=== PATIENT | male | born 1930 | race Caucasian/White ===

== ENCOUNTER → 2016-03-07 | Outpatient (CLI) | payer OTHER, MEDICARE ==
[~2016-03-07] MED LIST: ASPI-428 PO; GLIM1TAB2 PO; IMDSR60 PO; ISOS60TA2 PO; KPP250 PO; LACO50TA PO; METO50TA7 PO; MULT-506 PO; NTRGSL/4 UT; NVLGIPEN SC; OLME5TAB3 PO; OMEG10007 PO; RANI300T2 PO; SIMV80TA2 PO; [UNRECOGNIZED DRUG - OTHER]
[2016-03-07 13:32] LABS: URINE APPEARANCE CLEAR (CLEAR); URINE BILIRUBIN NEG (NEG); URINE COLOR YELLOW; URINE EPITHELIAL CELL AUTO 0-5 /lpf (0-5); URINE NITRITE NEG (NEG); URINE SPECIFIC GRAVITY 1.017 (1.000-1.030); UROBILINOGEN NEG (NEG)
[2016-03-07 13:36] LABS: MANUAL MICROSCOPIC REQUIRED? NO; REVIEW REQ? NO
[2016-03-07 13:48] LABS: BASO % 0.3 %; BASO ABS # 0.02 K/uL (0-0.2); COMPLETE YES; EOS % 3.7 %; HEMATOCRIT 42.7 % (42-52); IG% 0.1 %; LYMPH % 11.6 %; LYMPH ABS # 0.85 K/uL (1.2-3.4); MEAN CELL VOLUME 90.7 fL (80-100); MEAN CORPUSCULAR HEMOGLOBIN 31.6 pg (25-34); MEAN CORPUSCULAR HGB CONC 34.9 g/dl (32-36); MEAN PLATELET VOLUME 12.3 fL (7.4-10.4); MONO % 11.2 %; NEUT % 73.1 %; PLATELET COUNT 153 K/uL (130-400); RED BLOOD COUNT 4.71 M/uL (4.7-6.1); WHITE BLOOD COUNT 7.35 K/uL (4.8-10.8)
[2016-03-07 13:56] LABS: ALT/SGPT 42 U/L (12-78); AST/SGOT 29 U/L (15-37); BLOOD UREA NITROGEN 30 mg/dl (7-18); BUN/CREATININE RATIO 19.9 (10-20); CALCIUM 9.4 mg/dl (8.5-10.1); CARBON DIOXIDE 25 mmol/L (21-32); CHLORIDE 108 mmol/L (98-107); GLUCOSE 108 mg/dl (70-99); POTASSIUM 4.4 mmol/L (3.5-5.1); SODIUM 142 mmol/L (136-145)
[2016-03-07 13:59] LABS: ALB/GLOB RATIO 1.2 (0.9-2); ALKALINE PHOSPHATASE 128 U/L (45-117); PHOSPHORUS 3.1 mg/dl (2.5-4.9)
[2016-03-07 14:04] LABS: URINE PROTIEN/CREAT RATIO 0.1 (0-0.2); URINE TOTAL PROTEIN 8.7 mg/dl (0-11.9)
[2016-03-07 14:10] LABS: IMMUNOGLOBULN M 22.3 mg/dL (40-230); URIC ACID 6.1 mg/dl (2.6-7.2)
[2016-03-07 14:21] LABS: ESTIMATED AVERAGE GLUCOSE 123 mg/dl; HA1C FLAG Normal (Normal)
--- NOTE | 2016-03-17 12:18 | CODING QUERY MEDICAL NECESSITY ---
SUPPORTING DIAGNOSIS NEEDED A supporting diagnosis is required for the test/procedure performed on this patient in order for us to be reimbursed by the patient's insurance. Please provide a supporting diagnosis for the following test/procedure listed below next to the test name along with your signature. *If there is no additional diagnosis for this patient that would support the following test/procedure please document that below next to the test/procedure. Test(s)/Procedure(s) that require a supporting diagnosis: DOS 03/07/16 * Hba1c DIAGNOSIS: Provider Signature: Date: Thank you Petrona Reese Health Information Management Once completed, please kindly fax back to [phone] For questions please call [phone]
== END | disposition home or self-care (01) ==
LOC: C.LABMFLN 08:24
PROVIDERS: ATTEND Family Medicine
DX: I25.10 Atherosclerotic heart disease of native coronary artery without angina pectoris (principal); C85.90 Non-Hodgkin lymphoma, unspecified, unspecified site; I12.9 Hypertensive chronic kidney disease with stage 1 through stage 4 chronic kidney disease, or unspecified chronic kidney disease; E78.00 Pure hypercholesterolemia, unspecified; G40.909 Epilepsy, unspecified, not intractable, without status epilepticus; E55.9 Vitamin D deficiency, unspecified; E53.8 Deficiency of other specified B group vitamins; N18.3 Chronic kidney disease, stage 3 (moderate); D64.9 Anemia, unspecified; N25.81 Secondary hyperparathyroidism of renal origin; C82.90 Follicular lymphoma, unspecified, unspecified site; E11.22 Type 2 diabetes mellitus with diabetic chronic kidney disease

== ENCOUNTER 2016-03-31 09:48 | Inpatient (IN) | payer OTHER, MEDICARE ==
[~2016-03-31] VITALS: Ht 170.2 cm; Wt 78.5 kg
[~2016-03-31 09:48] MED LIST changes: -GLIM1TAB2 PO; -ISOS60TA2 PO; -LACO50TA PO; -NVLGIPEN SC; -OLME5TAB3 PO
[2016-03-31] MEDS ORDERED: GLIM1TAB2 PO (10:17)
[2016-03-31] MEDS ORDERED: ISOS60TA2 PO (10:17)
[2016-03-31] MEDS ORDERED: OLME5TAB3 PO (10:21)
[2016-03-31] MEDS ORDERED: NITROGLYCERIN 0.4 MG SL PER TAB CHARGE ONE (10:52)
[2016-03-31] MEDS ORDERED: NITROGLYCERIN 0.3 MG/1 TAB 100 TAB BTL SL PRN (11:00)
[2016-03-31 11:02] LABS: BASO % 0.1 %; BASO ABS # 0.01 K/uL (0-0.2); COMPLETE YES; EOS % 0.9 %; HEMATOCRIT 39.7 % (42-52); IG% 0.3 %; LYMPH % 6.4 %; LYMPH ABS # 0.59 K/uL (1.2-3.4); MEAN CELL VOLUME 90.2 fL (80-100); MEAN CORPUSCULAR HEMOGLOBIN 31.6 pg (25-34); MEAN PLATELET VOLUME 11.7 fL (7.4-10.4); MONO % 8.5 %; NEUT % 83.8 %; PLATELET COUNT 122 K/uL (130-400); WHITE BLOOD COUNT 9.28 K/uL (4.8-10.8)
--- NOTE | 2016-03-31 11:05 | EMERGENCY ROOM VISIT NOTE ---
History First contact with patient: 10:19 Chief Complaint: CHEST PAIN Stated Complaint: Chest Pain Nursing Triage Summary: Sudden onset of CP this AM while in bathroom. +cardiac history with bypass. gave patient 3 nitro at home, last one at 0840 and pain was relieved. O2 sats for EMS were in the 80s on RA upon arrival. EMS gave 324 ASA. When pt asked if he has pain upon arrival to ED he states, "its acting up." Also reports it radiates up into the left side of his neck. History of Present Illness The patient is a 85 year old male who presents to the Emergency Room with complaints of chest pain and shortness of breath. Patient is accompanied by who contributes to the history as patient has moderate dementia. Patient has been short of breath for the past 2-3 days. This morning noted he was short of breath at rest and was complaining of 'angina' chest pain. However, she notes the pain was present with or without exertion. She gave him 3 doses of nitroglycerine which did not alleviate the symptoms. He also looked short of breath and noted his lips looked 'cyanotic'. He had a similar episode yesterday and she gave him 1 dose of nitroglycerine which seemed to help. When asked patient similar questions he recalls this morning. He notes that the pain was a "sharp pain" in the upper sternum that radiated into the left arm. Pain was not positional. He also states, contrary to that the nitroglycerine helped the chest pain. He does not have recollection of chest pain day prior and whether nitroglycerine helped or not. He has also had shortness of breath for the past 3 days. His shortness of breath was primarily with exertion but this morning it was also at rest. He has had coughing but it has been non-productive. He has not had wheezing. His symptoms are no different between day and night. He has not had any gastrointestinal or genitourinary symptoms. He has not had fevers and his appetite and intake have been good. He does have a history of CAD and has had CABG x 2 in 1988 and 1998. He is followed by Dr. Heath. Last EF was in 2013 and was 50-55%. At his baseline he can walk 5-10 minutes on a level treadmill. He can do stairs. He does not have any oxygen need at home. Review of Systems A 10 point review of systems was negative unless stated above. Past Medical/Surgical History Medical Problems: (1) Acute on chronic kidney failure (2) ANTICOAGULANTS,LT,CURRENT USE (3) AORTOCORONARY BYPASS (4) Aphasia (5) BLURRED VISION (6) CORON ATHEROSCLER NOS TYPE VESSEL, KOBUK OR GRAFT (7) DIAB STACEY WO COMPL, TYPE II OR UNSPEC TYPE, NOT UNCNTRLD (8) HYPERLIPIDEMIA NEC/NOS (9) HYPERTENSION NOS (10) MALIG GO SKIN TRUNK (11) Non-Hodgkin's lymphoma (12) OTH LYMPHOMAS EXTRANODAL & SOLID ORGAN UNSPECIFIED (13) Pulmonary embolism (14) TIA (transient ischemic attack) (15) Unstable angina Family History Noncontributory due to advanced age Coronary artery disease in parents Social History Smoking Status: Never Smoker Smokeless Tobacco Use: No Alcohol Use: none Drug Use: none Marital Status: Housing Status: lives with family ([facility] Occupation Status: retired Current/Historical Medications Scheduled Aspirin (Ecotrin Low Strength), 81 MG PO HS Fish Oil ([place]-3), 1 TAB PO DAILY Glimepiride (Glimepiride), 1 MG PO DAILY Isosorbide Mononitrate (Imdur Ext Rel), 60 MG PO DAILY Levetiractam (Keppra), 250 MG PO BID Metoprolol Succ (Toprol Xl) (Toprol-Xl), 1 TAB PO DAILY Multivitamin (Multivitamin), 1 TABLET PO DAILY Nitroglycerin (Nitrostat), 0.4 MG UT PRN Olmesartan Medoxomil (Olmesartan Medoxomil), 5 MG PO DAILY Ranitidine Hcl (Zantac), 300 MG PO HS Simvastatin (Zocor), 80 MG PO HS Allergies Coded Allergies: Adhesives (Verified Allergy, Unknown, UNKN, 02/07/15) Procaine (Verified Allergy, Unknown, UNKNOWN, 02/07/15) Morphine (Verified Adverse Reaction, Unknown, UNKN, 02/07/15) Physical Exam Vital Signs Date Time Temp Pulse Resp B/P Pulse Ox O2 Delivery O2 Flow Rate FiO2 03/31/16 14:25 70 18 135/95 95 03/31/16 14:22 70 18 135/95 96 Room Air 03/31/16 13:33 67 03/31/16 12:36 68 18 125/76 95 03/31/16 10:55 67 19 142/80 96 Room Air 03/31/16 10:04 97 Nasal Cannula 2.0 03/31/16 09:58 90 Room Air 03/31/16 09:56 77 03/31/16 09:54 36.6 75 20 163/86 90 Room Air 03/31/16 09:54 90 Room Air Pain Rating (0-10): 0 Physical Exam Constitutional: Vital signs as above were reviewed. Eyes: Pupils equal, round, and reactive to light. Extraocular muscles are intact. No proptosis. No photophobia. ENT: Mucous membranes are moist. Oropharynx is clear. No sinus tenderness. TMs are clear bilaterally. Cardiovascular: Heart with a regular rate and rhythm. Pulses are palpable and symmetric in all 4 extremities. No pedal edema appreciated. No JVD Well healed midline thoracotomy scar Saphenous grafting scars Respiratory: Lungs clear to auscultation bilaterally. No wheezes, rales, or rhonchi appreciated. No accessory muscle use. No retractions. No increased work of breathing. GI: Abdomen soft, nontender, nondistended. Normal active bowel sounds. No abdominal hernias appreciated. No rebound. No guarding. : No CVA tenderness appreciated. Musculoskeletal: No midline cervical or vertebral tenderness. No gross deformities. No bony tenderness. No calf swelling or tenderness. Integumentary: Warm, dry, no rashes appreciated. Neurological: Patient awake, alert, and oriented x 3. Cranial nerves two through 12 grossly intact. Motor 5 out of 5 strength bilateral upper and lower extremities. Lymph: No cervical lymphadenopathy appreciated. Medical Decision & Procedures ER Provider Diagnostic Interpretation: [~ rep ct add3]] SINGLE VIEW CHEST CLINICAL HISTORY: Dyspnea. FINDINGS: An AP, portable, upright chest radiograph is compared to study dated 02/07/2015 and correlated with chest CT dated 06/16/2011. The examination is degraded by portable technique and patient rotation. The patient is status post midline sternotomy. The heart is enlarged and there is atherosclerotic calcification of the thoracic aorta. The pulmonary vasculature is noncongested. Scattered calcified granulomas are observed. Linear scarring at the left lung base and chronic interstitial thickening are similar to previous. No airspace consolidation, large pleural effusion, or pneumothorax is seen. The skeletal structures are osteopenic. The bony thorax is grossly intact. IMPRESSION: Cardiomegaly with no active disease in the chest. Electronically signed by: Jose Garduno M.D. 03/31/2016 11:23 AM Dictated Date/Time: 03/31/2016 11:22 AM Laboratory Results 03/31/16 10:25 Red Blood Count 4.40, Mean Corpuscular Volume 90.2, Mean Corpuscular Hemoglobin 31.6, Mean Corpuscular Hemoglobin Concent 35.0, Mean Platelet Volume 11.7, Neutrophils (%) (Auto) 83.8, Lymphocytes (%) (Auto) 6.4, Monocytes (%) (Auto) 8.5, Eosinophils (%) (Auto) 0.9, Basophils (%) (Auto) 0.1, Neutrophils # (Auto) 7.78, Lymphocytes # (Auto) 0.59, Monocytes # (Auto) 0.79, Eosinophils # (Auto) 0.08, Basophils # (Auto) 0.01 03/31/16 10:25 Test 03/31/16 10:25 White Blood Count 9.28 K/uL (4.8-10.8) Red Blood Count 4.40 M/uL (4.7-6.1) Hemoglobin 13.9 g/dL (14.0-18.0) Hematocrit 39.7 % (42-52) Mean Corpuscular Volume 90.2 fL (80-100) Mean Corpuscular Hemoglobin 31.6 pg (25-34) Mean Corpuscular Hemoglobin Concent 35.0 g/dl (32-36) Platelet Count 122 K/uL (130-400) Mean Platelet Volume 11.7 fL (7.4-10.4) Neutrophils (%) (Auto) 83.8 % Lymphocytes (%) (Auto) 6.4 % Monocytes (%) (Auto) 8.5 % Eosinophils (%) (Auto) 0.9 % Basophils (%) (Auto) 0.1 % Neutrophils # (Auto) 7.78 K/uL (1.4-6.5) Lymphocytes # (Auto) 0.59 K/uL (1.2-3.4) Monocytes # (Auto) 0.79 K/uL (0.11-0.59) Eosinophils # (Auto) 0.08 K/uL (0-0.5) Basophils # (Auto) 0.01 K/uL (0-0.2) RDW Standard Deviation 43.2 fL (36.4-46.3) RDW Coefficient of Variation 13.2 % (11.5-14.5) Immature Granulocyte % (Auto) 0.3 % Immature Granulocyte # (Auto) 0.03 K/uL (0.00-0.02) Anion Gap 12.0 mmol/L (3-11) Est Creatinine Clear Calc Drug Dose 35.1 ml/min Estimated GFR () 45.2 Estimated GFR (Non- 39.0 BUN/Creatinine Ratio 18.7 (10-20) Calcium Level 9.3 mg/dl (8.5-10.1) ECG Change: no significant change Change: Normal sinus rhythm Nonspecific ST abnormality Abnormal ECG When compared with ECG of 07-FEB-2015 09:38, No significant change was found Confirmed by MANJIT BUI MD ([id number]) on 03/31/2016 2:33:15 PM ED Course 10:30 - Patient assessed CBC, BMP cardiac enzymes, EKG and Chest x-ray ordered Patient is currently chest pain free 10:50 - Daughter notified me that patient is DNR and would prefer comfort measures 11:10 - Previous EKG reviewed 11:30 - Notified of Troponin 0.061 11:40 - Returned to room with family; patient is still chest pain free and feeling well Discussed with patient and admission for further evaluations Have noted that whether he is having ongoing myocardial damage is unknown and he needs serial monitoring states he is DNR and would not want catheterization; I have noted the other alterative which would be medical management but needs 24 hour trending first will discuss with daughters, whether they want admission with evaluation 13:10 - Returned to room; patient, and 4 daughters are present at the bedside Reviewed earlier conversation notes she accepts recommendation to admit for work-up Would like to review goals of care after troponins have trended 13:25 - Case discussed with Dr. Shaffer; patient to be admitted for further evaluation. Patient comfortable and doing well. Medical Decision A thorough history was obtained, physical examination performed and the EMR was reviewed. The case was reviewed multiple times over with Dr. Morocho during the patient's ED visit. Patient is a very pleasant 85 year old male with a known history of coronary artery disease as well. He presents with a history of chest pain and shortness of breath over the past 2 days, that has had a variable response to nitroglycerine. Given his cardiac history, acute coronary syndrome cannot be excluded. Other differential diagnoses to consider include, Pneumonia, Bronchitis, Pneumothorax, aortic dissection, pulmonary embolism, Pericarditis, Myocarditis. He was given ASA 324 en route to the ED. Chest x-ray was negative for any acute process. EKG did not reveal any new findings compared to EKG in October 2014. However, an initial troponin was positive at 0.061. As such this needs to be trended to further determine if there is ongoing myocardial, this is self-limited demand ischemia or whether this is related to poor troponin clearance due to CKD. who is a substitute decision maker does note that he is a DNR and that they do not want to have coronary angiography. I have discussed the alternative to catheterization (ie intensive medical management), as an to consider if this turns out to be ACS. However at this time, with only a single troponin, it is unclear if there is ongoing myocardial damage. Patient and daughters had the opportunity to discuss and were amenable to being admitted for further work-up to determine if this is truly ACS and what the possible next would be if this is the case. I have discussed this case with the hospitalist service and made them aware of reviewing goals of care in 24 hours after cardiac enzymes have been trended. Patient was admitted without symptoms and in stable condition. Impression Primary Impression: NSTEMI (non-ST elevated myocardial infarction) Departure Information Dispostion Being Evaluated By Hospitalist Condition GOOD Referrals Jose Mae M.D. (PCP) Patient Instructions My [facility]
[2016-03-31 11:09] LABS: BUN/CREATININE RATIO 18.7 (10-20); CALCIUM 9.3 mg/dl (8.5-10.1); CREATININE 1.6 mg/dl (0.60-1.40); POTASSIUM 4.4 mmol/L (3.5-5.1)
--- NOTE | 2016-03-31 11:25 | DIAGNOSTIC IMAGING REPORT ---
SINGLE VIEW CHEST CLINICAL HISTORY: Dyspnea. FINDINGS: An AP, portable, upright chest radiograph is compared to study dated 02/07/2015 and correlated with chest CT dated 06/16/2011. The examination is degraded by portable technique and patient rotation. The patient is status post midline sternotomy. The heart is enlarged and there is atherosclerotic calcification of the thoracic aorta. The pulmonary vasculature is noncongested. Scattered calcified granulomas are observed. Linear scarring at the left lung base and chronic interstitial thickening are similar to previous. No airspace consolidation, large pleural effusion, or pneumothorax is seen. The skeletal structures are osteopenic. The bony thorax is grossly intact. IMPRESSION: Cardiomegaly with no active disease in the chest. Electronically signed by: Jose Garduno M.D. 03/31/2016 11:23 AM Dictated Date/Time: 03/31/2016 11:22 AM
[2016-03-31 14:22] VITALS: BP 135/95; PULSE 70; O2SAT 96; Ht 170.2 cm; Wt 78.5 kg
--- NOTE | 2016-03-31 14:32 | Medical Student: [facility] ---
Med Student History & Physical Date & Time of Service: Mar 31, 2016 at 14:11 Chief Complaint: Shortness of breath and Chest Pain Primary Care Physician: Jose Mae M.D. History of Present Illness Source: patient, family 85 y/o male with history of CABG x2 (1988 and 1998) and cardiac stents began having shortness of breath two days ago and some chest pain that was relieved with one nitro, given by his at home. The patient did not have any issues yesterday but began to have shortness of breath and chest pain beginning around 9am this morning. The patient states that the pain was located in the middle and left of his chest and radiated down his left arm. He states that the pain was constant, but was made worse with exertion. The patient also had some sweats during this period. Per , the patient was given three NTG's at home which did not relieve the symptoms. She then proceeded to call the ambulance and the patient was given four 81mg ASA upon their arrival. The states that this, in addition to the O2 that the patient was given in route to the hospital helped to improve his symptoms. She states that the last time he had any chest pain was around noon. Prior to the past three days, the states that the patient has not had any recent chest pain or shortness of breath. The only times that he has needed NTG in the past few years is when he exerts himself on the treadmill. He has no problems getting around the house. The patient is followed by Dr. Heath in cardiology and was last seen in December of 2015. The patient does have a history of a PE, in November 2008 while he was being treated with chemo for lymphoma. His lymphoma has been in remission for years. He has not been less active recently and has not had any recent long trips. He denies calf swelling, pain, or bruising. Patient has a history of dementia. Dr. Quintana follows the patient's stage III CKD [address]. Morrow follows the patient for seizures. Past Medical/Surgical History Medical Problems: (1) Near syncope 2. CKD- stage III 3. Seizures 4. diabetes 5. HTN 6. PE 7. TIA 8. Dementia 9. Lymphoma 10. Cardiac stents 11. CABG x2 (1988 and 1998) Family History Father: heart disease Mother: heart disease Sibling(s): heart disease, cancer Social History Smoking Status: Never Smoker Smokeless Tobacco Use: No Alcohol Use: none Drug Use: none Marital Status: Housing status: lives with family Occupational Status: retired Immunizations History of Influenza Vaccine: Yes Influenza Vaccine Date: Nov 22, 2012 History of Tetanus Vaccine?: UTD Tetanus Immunization Date: Apr 20, 2002 History of Pneumococcal: Yes Pneumococcal Date: Apr 20, 2009 History of Hepatitis B Vaccine: No Allergies Coded Allergies: Adhesives (Verified Allergy, Unknown, UNKN, 02/07/15) Procaine (Verified Allergy, Unknown, UNKNOWN, 02/07/15) Morphine (Verified Adverse Reaction, Unknown, UNKN, 02/07/15) Medications Aspirin (Ecotrin Low Strength), 81 MG PO HS Fish Oil ([place]-3), 1 TAB PO DAILY Glimepiride (Glimepiride), 1 MG PO DAILY Isosorbide Mononitrate (Imdur Ext Rel), 60 MG PO DAILY Levetiractam (Keppra), 250 MG PO BID Metoprolol Succ (Toprol Xl) (Toprol-Xl), 1 TAB PO DAILY Multivitamin (Multivitamin), 1 TABLET PO DAILY Nitroglycerin (Nitrostat), 0.4 MG UT PRN Olmesartan Medoxomil (Olmesartan Medoxomil), 5 MG PO DAILY Ranitidine Hcl (Zantac), 300 MG PO HS Simvastatin (Zocor), 80 MG PO HS Review of Systems Constitutional: + sweats, No chills, No fever Eyes: No discharge, No redness, No worsening of vision ENT: No nasal symptoms, No sore throat Respiratory: + shortness of breath, No cough, No sputum Cardiovascular: + chest pain, No edema Abdomen: No constipation, No diarrhea, No nausea, No pain, No vomiting Musculoskeletal: No calf pain, No swelling Neurologic: + memory loss (history of dementia), No weakness Endocrine: No excessive thirst, No fatigue Integumentary: No itch, No new/changing skin lesions, No rash Physical Exam Vital Signs (24 Hours) Date Time Temp Pulse Resp B/P Pulse Ox O2 Delivery O2 Flow Rate FiO2 03/31/16 13:33 67 03/31/16 12:36 68 18 125/76 95 03/31/16 10:55 67 19 142/80 96 Room Air 03/31/16 10:04 97 Nasal Cannula 2.0 03/31/16 09:58 90 Room Air 03/31/16 09:56 77 03/31/16 09:54 36.6 75 20 163/86 90 Room Air 03/31/16 09:54 90 Room Air General Appearance: WD/WN, no apparent distress Eyes: normal inspection, EOMI Neck: supple, no JVD, no carotid bruits Respiratory/Chest: chest non-tender, lungs clear, normal breath sounds, no respiratory distress, no accessory muscle use Cardiovascular: regular rate, rhythm, no edema, no murmur Abdomen/GI: normal bowel sounds, non tender, soft, no pulsatile mass Extremities/Musculoskelatal: normal inspection, no calf tenderness, no pedal edema, non-tender Neurologic/Psych: alert, normal mood/affect Skin: normal color, warm/dry, no rash Diagnostics Laboratory Results Results Past 24 Hours Test 03/31/16 10:25 Range/Units White Blood Count 9.28 4.8-10.8 K/uL Red Blood Count 4.40 4.7-6.1 M/uL Hemoglobin 13.9 14.0-18.0 g/dL Hematocrit 39.7 42-52 % Mean Corpuscular Volume 90.2 80-100 fL Mean Corpuscular Hemoglobin 31.6 25-34 pg Mean Corpuscular Hemoglobin Concent 35.0 32-36 g/dl Platelet Count 122 130-400 K/uL Mean Platelet Volume 11.7 7.4-10.4 fL Neutrophils (%) (Auto) 83.8 % Lymphocytes (%) (Auto) 6.4 % Monocytes (%) (Auto) 8.5 % Eosinophils (%) (Auto) 0.9 % Basophils (%) (Auto) 0.1 % Neutrophils # (Auto) 7.78 1.4-6.5 K/uL Lymphocytes # (Auto) 0.59 1.2-3.4 K/uL Monocytes # (Auto) 0.79 0.11-0.59 K/uL Eosinophils # (Auto) 0.08 0-0.5 K/uL Basophils # (Auto) 0.01 0-0.2 K/uL RDW Standard Deviation 43.2 36.4-46.3 fL RDW Coefficient of Variation 13.2 11.5-14.5 % Immature Granulocyte % (Auto) 0.3 % Immature Granulocyte # (Auto) 0.03 0.00-0.02 K/uL Sodium Level 145 136-145 mmol/L Potassium Level 4.4 3.5-5.1 mmol/L Chloride Level 110 98-107 mmol/L Carbon Dioxide Level 23 21-32 mmol/L Anion Gap 12.0 3-11 mmol/L Blood Urea Nitrogen 30 7-18 mg/dl Creatinine 1.60 0.60-1.40 mg/dl Est Creatinine Clear Calc Drug Dose 35.1 ml/min Estimated GFR () 45.2 Estimated GFR (Non- 39.0 BUN/Creatinine Ratio 18.7 10-20 Random Glucose 143 70-99 mg/dl Calcium Level 9.3 8.5-10.1 mg/dl Total Creatine Kinase 96 39-308 U/L Creatine Kinase MB 1.9 0.5-3.6 ng/ml Creatine Kinase MB Ratio 2.0 0-3.0 Troponin I 0.061 0-0.045 ng/ml Diagnostic Radiology CXR: FINDINGS: An AP, portable, upright chest radiograph is compared to study dated 02/07/2015 and correlated with chest CT dated 06/16/2011. The examination is degraded by portable technique and patient rotation. The patient is status post midline sternotomy. The heart is enlarged and there is atherosclerotic calcification of the thoracic aorta. The pulmonary vasculature is noncongested. Scattered calcified granulomas are observed. Linear scarring at the left lung base and chronic interstitial thickening are similar to previous. No airspace consolidation, large pleural effusion, or pneumothorax is seen. The skeletal structures are osteopenic. The bony thorax is grossly intact. IMPRESSION: Cardiomegaly with no active disease in the chest. Impression Assessment and Plan Differential Diagnosis: Unstable Angina, Myocardial Infarction, Aortic Dissection, PE, Pneumonia, Viral URI, aortic aneurysm, costochondritis, COPD, CHF exacerbation, Hypoglycemic episode Assessment and Plan: Given the patient's recent history and significant heart history of CAD, CABG, and cardiac stents, he will be admitted for a cardiac rule out. Will get serial heart enzymes and ecgs. Dr. Heath will be consulted. Echocardiogram ordered. Family wants to have a plan for PT prior to discharge. Once the patient is cleared from a cardiac standpoint, will further address this issue. The patient does have a history of PE while on chemotherapy for lymphoma. While having this history and having episodes of shortness of breath and chest pain, he does not have any other warning signs at this time. Given his history of CKD and creatinine of 1.6, will consider getting a V/Q scan. 1. CAD, chest pain rule out - Serial heart enzymes, ECGs. Consult Dr. Heath. Continue with ASA 81mg PO qAM and Fish Oil. Administer NTG as needed for chest pain. Echo ordered. 2. CKD- Stable, Continue to monitor creatinine and kidney function. 3. Diabetes- Discontinue Glimeperide 1mg during hospital stay. Initiate administration of Novolog. 4. HTN- Continue with home medications of Olmesartan 5mg PO daily and Metoprolol Succinate 1 tab PO daily 5. Seizures- Continue with home dosage of Levetiracetam 250mg PO BID 6. Hyperlipidemia- Continue with Simvastatin 80mg 7. GERD- continue administration of ranitidine 300mg PO
[2016-03-31] MEDS ORDERED: NITROGLYCERIN 0.4 MG SL PER TAB CHARGE UT PRN (14:45)
[2016-03-31] MEDS ORDERED: GLUCOSE 40% GEL 15 GM TUBE PO PRN (15:00)
[2016-03-31] MEDS ORDERED: GLUCAGON FOR INJ 1 MG VIAL SQ PRN (15:00)
[2016-03-31] MEDS ORDERED: ACETAMINOPHEN 325 MG TAB PO PRN (15:00)
[2016-03-31] MEDS ORDERED: ZOLPIDEM TARTRATE 5 MG TAB PO PRN (15:00)
[2016-03-31] MEDS ORDERED: ONDANSETRON INJ 2 MG/ML 2 ML VIAL IV PRN (15:00)
[2016-03-31] MEDS ORDERED: GLUCOSE 10 TABS/TUBE PO PRN (15:00)
[2016-03-31] MEDS ORDERED: DEXTROSE 50% 50 ML SYR IV PRN (15:00)
[2016-03-31 15:45] VITALS: BP_SYST 203; BP_SYST 206; BP_DIAS 106; BP_DIAS 114; PULSE 90; O2SAT 95
[2016-03-31 15:49] LABS: CKMB/CK RATIO 2.5 (0-3.0)
[2016-03-31 16:00] VITALS: BP 163/84; PULSE 75; O2SAT 95
--- NOTE | 2016-03-31 17:36 | EMERGENCY ROOM VISIT NOTE ---
ED Visit Note First contact with patient: 10:19 Resident Physician Supervision Note: I interviewed and examined the patient. Discussed with Dr. Bauman and agree with findings and plan as documented in the note. Any exceptions or clarifications are listed here: Patient and family seem comfortable with the plan for further evaluation and management by the hospitalist service. Thus far the EKG and cardiac enzymes are negative. Please refer to Dr. Bauman's notes for further detail of the history, physical and visit. Documented By: Elke Morocho
[2016-03-31] MEDS: INSULIN ASPART 100 UNITS/ML 3 ML PEN SC SCH ×2 (18:00→20:58)
[2016-03-31] MEDS: NITROGLYCERIN OINT 2% 1GM PACKET EXT SCH (18:17)
[2016-03-31 18:58] VITALS: BP 169/56; PULSE 65; TEMP 36.7; O2SAT 94
[2016-03-31 20:00] VITALS: O2SAT 94
[2016-03-31] MEDS: OLMESARTAN MEDOXOMIL 5 MG TAB PO SCH (20:53)
[2016-03-31] MEDS: LEVETIRACETAM 250 MG TAB PO SCH (20:54)
[2016-03-31] MEDS: RANITIDINE HCL 150 MG TAB PO SCH (20:57)
[2016-03-31] MEDS: SIMVASTATIN 80 MG TAB PO SCH (20:57)
[2016-03-31] MEDS: METOPROLOL SUCC 50MG EXT REL TAB PO SCH (20:57)
[2016-03-31 23:34] LABS: CKMB/CK RATIO 2.6 (0-3.0)
[2016-03-31 23:48] VITALS: BP 154/87; PULSE 70; TEMP 36.6; O2SAT 94
[2016-04-01] VITALS (13 sets, daily range): BP systolic 119–193; BP diastolic 68–88; PULSE 59–69; TEMP 36.4–36.9; O2SAT 93–97
[2016-04-01] MEDS: NITROGLYCERIN OINT 2% 1GM PACKET EXT SCH ×3 (00:36→11:47)
--- NOTE | 2016-04-01 01:48 | History and Physical ---
History & Physical Date & Time of Service: Apr 01, 2016 at 01:45 Chief Complaint: Unstable Angina Primary Care Physician: Jose Mae M.D. History of Present Illness Source: patient, family The patient is an 85-year-old male who presents emergency department with complaints of chest pain or shortness of breath for the past 2-3 days. The patient has moderate dementia. His noted he was more short of breath at rest the morning of admission and was complaining of anginal type chest pain she gave him 3 nitroglycerin sublinguals which did not alleviate his symptoms. She given him a single dose of nitroglycerin sublinguals the day before which did seem to help. Because of the persistence and worsening symptoms she called emergency services, who gave the patient 324 mg of aspirin in route. EMS also notes that his oxygen saturation was in the upper 80s on room air upon arrival. Past Medical/Surgical History Medical Problems: (1) ANTICOAGULANTS,LT,CURRENT USE Status: Chronic (2) AORTOCORONARY BYPASS Status: Resolved (3) Aphasia Status: Resolved (4) CORON ATHEROSCLER NOS TYPE VESSEL, GALENA OR GRAFT Status: Chronic (5) DIAB STACEY WO COMPL, TYPE II OR UNSPEC TYPE, NOT UNCNTRLD Permanent Comment: diet controlled Status: Chronic (6) HYPERLIPIDEMIA NEC/NOS Status: Chronic (7) HYPERTENSION NOS Status: Chronic (8) MALIG GO SKIN TRUNK Status: Resolved (9) Non-Hodgkin's lymphoma Status: Chronic (10) OTH LYMPHOMAS EXTRANODAL & SOLID ORGAN UNSPECIFIED Status: Resolved (11) Pulmonary embolism Status: Resolved (12) TIA (transient ischemic attack) Status: Resolved Family History Noncontributory due to advanced age Social History Smoking Status: Never Smoker Smokeless Tobacco Use: No Alcohol Use: none Drug Use: none Marital Status: Housing status: lives with family Occupational Status: retired Immunizations History of Influenza Vaccine: Yes Influenza Vaccine Date: Nov 22, 2012 History of Tetanus Vaccine?: UTD Tetanus Immunization Date: Apr 20, 2002 History of Pneumococcal: Yes Pneumococcal Date: Apr 20, 2009 History of Hepatitis B Vaccine: No Multi-Drug Resistant Organisms History of MDRO: No Allergies Coded Allergies: Adhesives (Verified Allergy, Unknown, UNKN, 02/07/15) Procaine (Verified Allergy, Unknown, UNKNOWN, 02/07/15) Morphine (Verified Adverse Reaction, Unknown, UNKN, 02/07/15) Home Medications Scheduled Aspirin (Ecotrin Low Strength), 81 MG PO HS Fish Oil ([place]-3), 1 TAB PO DAILY Glimepiride (Glimepiride), 1 MG PO DAILY Isosorbide Mononitrate (Imdur Ext Rel), 60 MG PO DAILY Levetiractam (Keppra), 250 MG PO BID Metoprolol Succ (Toprol Xl) (Toprol-Xl), 1 TAB PO DAILY Multivitamin (Multivitamin), 1 TABLET PO DAILY Nitroglycerin (Nitrostat), 0.4 MG UT PRN Olmesartan Medoxomil (Olmesartan Medoxomil), 5 MG PO DAILY Ranitidine Hcl (Zantac), 300 MG PO HS Simvastatin (Zocor), 80 MG PO HS Review of Systems The patient denies cough, lower extremity swelling, vision change, hearing change, sore throat, fevers, chills, sweats, weight change, fatigue, nausea, vomiting, abdominal pain, pelvic pain, blood in urine or stool, dysuria, urinary frequency or urgency, lightheadedness, dizziness, headache, rash, abnormal bruising or bleeding, imbalance, focal weakness, numbness or tingling in arms or legs, arthralgias or myalgias, back or neck pain, night sweats, or allergy symptoms. The review of systems is otherwise negative other than for that already noted above, and at least 10 systems have been reviewed. Physical Exam Vital Signs Date Time Temp Pulse Resp B/P Pulse Ox O2 Delivery O2 Flow Rate FiO2 03/31/16 23:48 36.6 70 18 154/87 94 Nasal Cannula 2.0 03/31/16 20:00 94 Nasal Cannula 2.0 03/31/16 18:58 36.7 65 18 169/56 94 Nasal Cannula 2.0 03/31/16 16:00 75 18 163/84 95 3.0 03/31/16 15:45 90 20 206/114 95 Nasal Cannula 3.0 03/31/16 15:45 203/106 03/31/16 15:02 70 18 135/95 95 03/31/16 14:25 70 18 135/95 95 03/31/16 14:22 70 18 135/95 96 Room Air 03/31/16 13:33 67 03/31/16 12:36 68 18 125/76 95 03/31/16 10:55 67 19 142/80 96 Room Air 03/31/16 10:04 97 Nasal Cannula 2.0 03/31/16 09:58 90 Room Air 03/31/16 09:56 77 03/31/16 09:54 36.6 75 20 163/86 90 Room Air 03/31/16 09:54 90 Room Air The patient is awake, well-developed and adequately nourished, alert and oriented 3 but slow to respond, normocephalic and atraumatic, lying in bed and in no acute distress. HEENT--PERRL, EOMI, mucous membranes and oropharynx dry. Neck--supple, no JVD or bruits, thyroid normal, trachea midline, no adenopathy. Heart--normal S1 and S2, no extra beats, no murmurs, rubs or gallops. Lungs--few scattered wheezes bilaterally, no respiratory distress, no accessory muscle use. Abdomen--normal bowel sounds and soft, nontender and nondistended, no hernias or masses, no organomegaly. Extremities--no cyanosis, clubbing, there is bilaterally 1+ pitting edema. There are good distal pulses b/l. Dermatologic--normal skin turgor, normal color, warm and dry, no abnormal lymph nodes, no rash. Neurologic--cranial nerves II through XII grossly intact, motor and sensory examination normal. Psychiatric--normal affect. Diagnostics Laboratory Results Results Past 24 Hours Test 03/31/16 10:25 03/31/16 15:05 03/31/16 18:14 03/31/16 20:44 Range/Units White Blood Count 9.28 4.8-10.8 K/uL Red Blood Count 4.40 4.7-6.1 M/uL Hemoglobin 13.9 14.0-18.0 g/dL Hematocrit 39.7 42-52 % Mean Corpuscular Volume 90.2 80-100 fL Mean Corpuscular Hemoglobin 31.6 25-34 pg Mean Corpuscular Hemoglobin Concent 35.0 32-36 g/dl Platelet Count 122 130-400 K/uL Mean Platelet Volume 11.7 7.4-10.4 fL Neutrophils (%) (Auto) 83.8 % Lymphocytes (%) (Auto) 6.4 % Monocytes (%) (Auto) 8.5 % Eosinophils (%) (Auto) 0.9 % Basophils (%) (Auto) 0.1 % Neutrophils # (Auto) 7.78 1.4-6.5 K/uL Lymphocytes # (Auto) 0.59 1.2-3.4 K/uL Monocytes # (Auto) 0.79 0.11-0.59 K/uL Eosinophils # (Auto) 0.08 0-0.5 K/uL Basophils # (Auto) 0.01 0-0.2 K/uL RDW Standard Deviation 43.2 36.4-46.3 fL RDW Coefficient of Variation 13.2 11.5-14.5 % Immature Granulocyte % (Auto) 0.3 % Immature Granulocyte # (Auto) 0.03 0.00-0.02 K/uL Sodium Level 145 136-145 mmol/L Potassium Level 4.4 3.5-5.1 mmol/L Chloride Level 110 98-107 mmol/L Carbon Dioxide Level 23 21-32 mmol/L Anion Gap 12.0 3-11 mmol/L Blood Urea Nitrogen 30 7-18 mg/dl Creatinine 1.60 0.60-1.40 mg/dl Est Creatinine Clear Calc Drug Dose 35.1 ml/min Estimated GFR () 45.2 Estimated GFR (Non- 39.0 BUN/Creatinine Ratio 18.7 10-20 Random Glucose 143 70-99 mg/dl Calcium Level 9.3 8.5-10.1 mg/dl Total Creatine Kinase 96 91 39-308 U/L Creatine Kinase MB 1.9 2.3 0.5-3.6 ng/ml Creatine Kinase MB Ratio 2.0 2.5 0-3.0 Troponin I 0.061 0.148 0-0.045 ng/ml Bedside Glucose 189 147 70-99 mg/dl Test 03/31/16 23:00 Range/Units Total Creatine Kinase 97 39-308 U/L Creatine Kinase MB 2.5 0.5-3.6 ng/ml Creatine Kinase MB Ratio 2.6 0-3.0 Troponin I 0.170 0-0.045 ng/ml Diagnostic Radiology Patient Name: TIMOTHY IVEY Unit Number: [id number] Dictated: 03/31/161121 Transcribed: 03/31/16 112 EV Printed Date/Time: [~ rep prt dt]/[~ rep prt tm] [~ rep ct labl] - [~ rep ct ivnm] [facility] [address] Dictated: 03/31/161121 Transcribed: 03/31/161121 EV Printed Date/Time: [~ rep prt dt]/[~ rep prt tm] [~ rep ct labl] - [~ rep ct ivnm] [~ rep ct add3]] SINGLE VIEW CHEST CLINICAL HISTORY: Dyspnea. FINDINGS: An AP, portable, upright chest radiograph is compared to study dated 02/07/2015 and correlated with chest CT dated 06/16/2011. The examination is degraded by portable technique and patient rotation. The patient is status post midline sternotomy. The heart is enlarged and there is atherosclerotic calcification of the thoracic aorta. The pulmonary vasculature is noncongested. Scattered calcified granulomas are observed. Linear scarring at the left lung base and chronic interstitial thickening are similar to previous. No airspace consolidation, large pleural effusion, or pneumothorax is seen. The skeletal structures are osteopenic. The bony thorax is grossly intact. IMPRESSION: Cardiomegaly with no active disease in the chest. Electronically signed by: Jose Garduno M.D. 03/31/2016 11:23 AM Dictated Date/Time: 03/31/2016 11:22 AM The status of this report is Signed. Draft = Not yet reviewed or approved by Radiologist. Signed = Reviewed and approved by Radiologist. <AttendingPhy></AttendingPhy> <FamilyPhy>Jose Mae M.D.</FamilyPhy> < PrimaryPhy>Jose Mae M.D.</PrimaryPhy> <UnitNumber>[id number]</UnitNumber> < VisitNumber>[id number]</VisitNumber> <PatientName>LONIMADHAVTIMOTHY</PatientName> < DateOfBirth>1930</DateOfBirth> <Location>[facility]</Location> <ServiceDate></ServiceDate> <MNE>ESINDI</MNE> <OrderingPhy>Ulises Bauman MD</OrderingPhy > <OrderingPhyMNE>f rep ord dr zavala</OrderingPhyMNE> <DictatingPhyMNE>f rep dict dr zavala</DictatingPhyMNE> <CCListMNE>f rep ct mne</CCListMNE> <AdmittingPhyMNE>f pt admit dr zavala</AdmittingPhyMNE> <AttendingPhyMNE>f pt attend dr zavala</ AttendingPhyMNE> <ConsultingPhyMNE>f pt consult dr zavala</ConsultingPhyMNE> <FamilyPhyMNE>f pt fam dr zavala</FamilyPhyMNE> <OtherPhyMNE>f pt other dr zavala</OtherPhyMNE> < PrimaryPhyMNE>f pt prim care dr zavala</PrimaryPhyMNE> <ReferringPhyMNE>f pt referring dr zavala</ReferringPhyMNE> EKG EKG shows normal sinus rhythm at 75, with nonspecific ST changes, no change from February 17, 2015. Impression Assessment and Plan Unstable angina with history of coronary artery disease and previous stents-- the patient will be admitted to the telemetry unit, for serial cardiac enzymes, cardiac rhythm monitoring, and a 2-D echocardiogram with Dopplers. His first troponin is mildly elevated at 0.061. We'll continue aspirin 81 mg by mouth daily but change from at bedtime to a.m., metoprolol succinate 50 mg daily, losartan 5 mg by mouth daily. Hold Imdur extended release 60 mg by mouth daily , and place on nitroglycerin paste 1 inch the anterior chest wall every 6 hours. Diabetes mellitus--hold glimeperide 1 mg by mouth daily, and place on Accu- Cheks before meals and at bedtime with NovoLog coverage. Hypercholesterolemia--continue simvastatin 80 mg by mouth at bedtime. Seizure disorder--continue Keppra 250 mg by mouth twice a day. GERD--continue ranitidine 3 mg by mouth at bedtime. PE history--occurred in the distant past, symptoms are not suggestive of PE. Renal insufficiency--creatinine 1.60 is near his baseline. Level of Care Telemetry Advanced Directives Existing Advance Directive: Yes Existing Living Will: Yes Existing Power of Concrete Finisher: Yes Resuscitation Status FULL RESUSCITATION VTE Prophylaxis VTE Risk Assessment Done? Y/N: Yes Risk Level: Moderate Given or contraindicated: SCD's
[2016-04-01] MEDS: INSULIN ASPART 100 UNITS/ML 3 ML PEN SC SCH ×4 (07:00→21:00)
[2016-04-01 07:40] LABS: BASO % 0.1 %; BASO ABS # 0.01 K/uL (0-0.2); COMPLETE YES; EOS % 2.4 %; HEMATOCRIT 38.1 % (42-52); IG% 0.2 %; LYMPH % 11.8 %; MEAN CELL VOLUME 90.5 fL (80-100); MEAN CORPUSCULAR HEMOGLOBIN 32.3 pg (25-34); MEAN CORPUSCULAR HGB CONC 35.7 g/dl (32-36); MEAN PLATELET VOLUME 11.8 fL (7.4-10.4); MONO % 11.1 %; NEUT % 74.4 %; PLATELET COUNT 124 K/uL (130-400); RED BLOOD COUNT 4.21 M/uL (4.7-6.1); WHITE BLOOD COUNT 8.46 K/uL (4.8-10.8)
[2016-04-01] MEDS ORDERED: LORAZEPAM 2 MG/ML 1 ML VIAL ONE (07:52)
[2016-04-01 07:54] LABS: INR 1.2 (0.9-1.1); PROTHROMBIN TIME (PATIENT) 12.4 SECONDS (9.0-12.0)
[2016-04-01] MEDS ORDERED: LORAZEPAM 2 MG/ML 1 ML VIAL IV ONE (08:00)
[2016-04-01] MEDS ORDERED: HALOPERIDOL LACTATE 5 MG/ML 1 ML VIAL IM PRN (08:00)
[2016-04-01 08:08] LABS: BUN/CREATININE RATIO 18.9 (10-20); CALCIUM 8.7 mg/dl (8.5-10.1); CREATININE 1.5 mg/dl (0.60-1.40); POTASSIUM 4.3 mmol/L (3.5-5.1)
[2016-04-01 08:13] LABS: BUN/CREATININE RATIO 19.7 (10-20); CALCIUM 8.7 mg/dl (8.5-10.1); CREATININE 1.5 mg/dl (0.60-1.40); MAGNESIUM 2.1 mg/dl (1.8-2.4); POTASSIUM 4.3 mmol/L (3.5-5.1)
[2016-04-01 08:21] LABS: CKMB/CK RATIO 2.6 (0-3.0)
[2016-04-01] MEDS ORDERED: METOPROLOL SUCC 50MG EXT REL TAB PO SCH (09:00)
[2016-04-01] MEDS ORDERED: OLMESARTAN MEDOXOMIL 5 MG TAB PO SCH (09:00)
--- NOTE | 2016-04-01 09:32 | Clinical Documentation Query ---
ABHAY Queen : CLINICAL DOCUMENTATION QUERY Patient is an 86 year old male admitted with unstable angina. Documentation includes "renal insufficiency", noting creatinine of 1.6 to be near baseline. Estimated GFR range from 02/08/15 to present of 39-62 ml/min. Please explicitly specify appropriate state of CKD in your patient. Thank you. In your clinical opinion is this patient being managed for: ( x ) Chronic kidney disease, stage 3 ( ) Other explanation of clinical findings (Please Explain) ( ) Unable to determine (Please Define) ( ) Need to Discuss ( ) Not Agree The medical record reflects the following clinical findings, treatment, and risk factors. Clinical Indicators: As above Treatment: Serial chemistries Risk Factors: Age, DM, HTN, GRACE Please clarify and document your clinical opinion in the progress notes and discharge summary. Terms such as "probable", "suspected", "likely", "questionable", "possible", or "still to be ruled out" are acceptable. IF IN AGREEMENT, YOU MUST DOCUMENT ABOVE DIAGNOSTIC STATEMENT IN DAILY PROGRESS NOTES AND DISCHARGE SUMMARY. This document is not part of the patient's record. Thank You, Jorge L Nicole, RN [phone]
[2016-04-01] MEDS: LEVETIRACETAM 250 MG TAB PO SCH ×2 (09:35→20:57)
[2016-04-01] MEDS: MULTIVITAMIN TAB PO SCH (09:35)
[2016-04-01] MEDS: OMEGA-3 (PURIFIED FISH OIL) 1 GM CAP PO SCH (09:36)
[2016-04-01] MEDS: ASPIRIN 81 MG ECTAB PO SCH (09:36)
--- NOTE | 2016-04-01 15:59 | CARDIOLOGY CONSULTATION ---
DATE OF CONSULTATION: 04/01/2016 DATE OF CONSULTATION: 04/01/2016. PERTINENT HISTORY: Mr. Rosa is an 86-year-old white male admitted yesterday with a chest pain syndrome. He is well known to me from the outpatient setting. History was obtained entirely from the chart and the patient's . The patient is confused this morning and apparently does not recognize his and daughter. According to the , over the last several days the patient has been complaining of exertional chest discomfort. On the day of presentation, he had a prolonged episode and was given 3 sublingual nitro tablets by his . This resulted in no changes in his symptoms and therefore, he was brought to the Emergency Room for further care. Since the time of his admission, the patient has not complained of chest discomfort. Of note, he was significantly hypertensive at the time of admission with blood pressures of 200/105. The patient does have a longstanding history of coronary artery disease. He had a 3-vessel bypass procedure performed in 1988, conduits are unknown. He had a redo procedure done and 1998 which apparently included a right internal mammary artery to the LAD. Over the last several years, the patient has had chronic stable angina pectoris. Currently, the patient is resting comfortably in bed without complaints. PAST MEDICAL HISTORY: 1. Coronary artery disease. 2. Status post CABG x3 -- 1988. 3. Redo CABG times 2 -- 1998 -- PAIGE to the LAD. 4. Chronic stable angina pectoris. 5. Hypertension. 6. Hypercholesterolemia. 7. Diabetes mellitus. 8. Diabetic polyneuropathy. 9. Dementia. 10. Seizure disorder. 11. GERD. 12. Chronic renal failure. 13. History of TIA x3 -- most recent January 2008. 14. Nephrolithiasis. 15. History of non-Hodgkin's lymphoma. 16. DVT/PE -- 2008. 17. Vitamin B12 deficiency. 18. Vitamin D deficiency. 19. Rosacea. MEDICATIONS: 1. Metoprolol succinate 50 mg at bedtime. 2. Nitro paste 1 inch q. 6 hours. 3. Benicar 5 mg at bedtime. 4. Zocor 80 mg at bedtime. 5. Aspirin 81 mg per day. 6. Fish oil 1 gram daily. 7. Multivitamin 1 daily. 8. Keppra 250 mg b.i.d. 9. Zantac 300 mg at bedtime. 10. Sliding scale insulin. ALLERGIES: 1. MORPHINE. 2. PROCAINE. SOCIAL HISTORY: The patient is and lives with his in the [facility]. Does not use tobacco or alcohol. FAMILY HISTORY: Noncontributory. REVIEW SYSTEMS: A 10-point review of systems is negative except for that described above. PHYSICAL EXAMINATION: GENERAL: This is a well-developed, well-nourished, elderly white male seated in the bedside chair without complaints. VITAL SIGNS: Blood pressure is 120/70 with a regular pulse of 70. Respiratory rate is 18. The patient is afebrile at 36.9 degree Celsius. Saturations 93% on room air. HEAD, EYES, EARS, NOSE, AND THROAT: Negative. NECK: Supple with full carotid upstrokes. There are no carotid bruits. Jugular venous pressure is flat at 90 degrees. There is no thyromegaly. CARDIOVASCULAR EXAMINATION: Reveals a regular rhythm with normal S1 and S2. Heart sounds are distant. No obvious murmurs. LUNGS: Clear without rales, rhonchi, or wheezes. ABDOMEN: Soft and nontender without bruits. EXTREMITIES: Reveal intact radial artery and posterior tibial pulses bilaterally. There is no peripheral edema. DATA: CBC notes a hemoglobin of 13.6, hematocrit 38.1, white count 8.4, platelet count 124,000. Electrolytes note a sodium of 144, potassium 4.3, chloride 110, bicarb 24, BUN 28, creatinine 1.5, glucose 120. Initial troponin was mildly elevated at 0.61 with follow-up values of 0.148, 0.17, and 0.105. CKs were all normal at 96, 91, 97, 100 with MB fractions 1.92, 2.3, 2.5 and 2.9 respectively. EKG notes sinus rhythm with nonspecific ST and T-wave abnormality. Chest x-ray notes cardiomegaly. traffic monitor specialist is benign. IMPRESSION: Mr. Rosa was admitted with an apparent chest pain syndrome. As above, history is unobtainable from the patient. In any event, his troponin is mildly elevated, but his CKs are normal. He was significantly hypertensive at the time of his evaluation in the Emergency Room. Not certain if his elevated cardiac enzymes represent myocardial ischemia or a supply demand mismatch. PLAN: 1. Agree with continuing usual outpatient cardiac medications. 2. Could convert topical nitrate to long acting Imdur. 3. Conservative medical management as the patient is not a surgical candidate. 4. Further recommendations depending on his clinical course.
[2016-04-01] MEDS ORDERED: HydrALAZINE HCL 20 MG/ML VIAL IV. PRN (17:45)
--- NOTE | 2016-04-01 18:33 | Hospitalist Progress Note ---
Hospitalist Progress Note Date of Service Apr 01, 2016. Subjective Pt evaluation today including: conversation w/ patient, physical exam PO Intake: cyrus po Pt denies any further chest pain, still a bit confused but less agitated. Has a 1:1 Constitutional: No fever Respiratory: No shortness of breath Cardiovascular: No chest pain Abdomen: No pain All Other Systems: Reviewed and Negative Objective Vital Signs Date Time Temp Pulse Resp B/P Pulse Ox O2 Delivery O2 Flow Rate FiO2 04/01/16 16:00 93 Room Air 04/01/16 14:58 36.4 65 18 150/74 93 Room Air 04/01/16 12:00 94 Room Air 04/01/16 11:47 36.4 66 20 132/68 94 04/01/16 08:50 36.9 69 18 119/71 93 Room Air 04/01/16 08:00 93 Room Air 04/01/16 04:00 97 Nasal Cannula 2.0 04/01/16 03:30 36.6 59 21 184/85 97 Nasal Cannula 2.0 186/88 04/01/16 02:03 94 Nasal Cannula 2.0 03/31/16 23:48 36.6 70 18 154/87 94 Nasal Cannula 2.0 03/31/16 20:00 94 Nasal Cannula 2.0 03/31/16 18:58 36.7 65 18 169/56 94 Nasal Cannula 2.0 Physical Exam General Appearance: WD/WN, no apparent distress Eyes: normal inspection, sclerae normal Neck: trachea midline Respiratory/Chest: lungs clear, normal breath sounds, no respiratory distress, no accessory muscle use Cardiovascular: regular rate, rhythm, no edema, no gallop, no murmur Abdomen: normal bowel sounds, non tender, soft Extremities: non-tender, normal inspection, no pedal edema, no calf tenderness Neurologic/Psychiatric: alert, + disoriented Skin: normal color, warm/dry, no rash Laboratory Results Last 24 Hours Test 03/31/16 18:14 03/31/16 20:44 03/31/16 23:00 04/01/16 06:47 Bedside Glucose 189 mg/dl 147 mg/dl 123 mg/dl Total Creatine Kinase 97 U/L Creatine Kinase MB 2.5 ng/ml Creatine Kinase MB Ratio 2.6 Troponin I 0.170 ng/ml Test 04/01/16 07:05 04/01/16 10:49 04/01/16 16:02 White Blood Count 8.46 K/uL Red Blood Count 4.21 M/uL Hemoglobin 13.6 g/dL Hematocrit 38.1 % Mean Corpuscular Volume 90.5 fL Mean Corpuscular Hemoglobin 32.3 pg Mean Corpuscular Hemoglobin Concent 35.7 g/dl Platelet Count 124 K/uL Mean Platelet Volume 11.8 fL Neutrophils (%) (Auto) 74.4 % Lymphocytes (%) (Auto) 11.8 % Monocytes (%) (Auto) 11.1 % Eosinophils (%) (Auto) 2.4 % Basophils (%) (Auto) 0.1 % Neutrophils # (Auto) 6.29 K/uL Lymphocytes # (Auto) 1.00 K/uL Monocytes # (Auto) 0.94 K/uL Eosinophils # (Auto) 0.20 K/uL Basophils # (Auto) 0.01 K/uL RDW Standard Deviation 43.4 fL RDW Coefficient of Variation 13.3 % Immature Granulocyte % (Auto) 0.2 % Immature Granulocyte # (Auto) 0.02 K/uL Prothrombin Time 12.4 SECONDS Prothromb Time International Ratio 1.2 Activated Partial Thromboplast Time 25.5 SECONDS Partial Thromboplastin Ratio 1.0 Sodium Level 144 mmol/L Potassium Level 4.3 mmol/L Chloride Level 110 mmol/L Carbon Dioxide Level 24 mmol/L Anion Gap 10.0 mmol/L Blood Urea Nitrogen 28 mg/dl Creatinine 1.50 mg/dl Est Creatinine Clear Calc Drug Dose 33.7 ml/min Estimated GFR () 48.5 Estimated GFR (Non- 41.9 BUN/Creatinine Ratio 18.9 Random Glucose 120 mg/dl Calcium Level 8.7 mg/dl Magnesium Level 2.0 mg/dl Total Bilirubin 0.7 mg/dl Direct Bilirubin 0.2 mg/dl Aspartate Amino Transf (AST/SGOT) 21 U/L Alanine Aminotransferase (ALT/SGPT) 25 U/L Alkaline Phosphatase 110 U/L Total Creatine Kinase 110 U/L Creatine Kinase MB 2.9 ng/ml Creatine Kinase MB Ratio 2.6 Troponin I 0.105 ng/ml Total Protein 6.1 gm/dl Albumin 3.1 gm/dl Bedside Glucose 165 mg/dl 142 mg/dl Assessment and Plan The patient is an 85-year-old male who presents emergency department with complaints of chest pain or shortness of breath for the past 2-3 days. The patient has moderate dementia. His noted he was more short of breath at rest the morning of admission and was complaining of anginal type chest pain she gave him 3 nitroglycerin sublinguals which did not alleviate his symptoms. She given him a single dose of nitroglycerin sublinguals the day before which did seem to help. Because of the persistence and worsening symptoms she called emergency services, who gave the patient 324 mg of aspirin in route. EMS also notes that his oxygen saturation was in the upper 80s on room air upon arrival. Serial cardiac markers mildly elevated but stable. Unstable angina with history of coronary artery disease and previous stents-- -continue telemetry-no events so far -f/u ECHO after completed -continue aspirin 81 mg by mouth daily , metoprolol succinate 50 mg daily, losartan 5 mg by mouth daily. -restart Imdur extended release 60 mg by mouth daily, d/c Nitropaste -Appreciate Cardiology consult--> conservative management given advanced age -likely d/c to rehab or SNF when able to Diabetes mellitus--hold glimeperide 1 mg by mouth daily, and place on Accu- Cheks before meals and at bedtime with NovoLog coverage. Hypercholesterolemia--continue simvastatin 80 mg by mouth at bedtime. Seizure disorder--continue Keppra 250 mg by mouth twice a day. GERD--continue ranitidine 3 mg by mouth at bedtime. PE history--occurred in the distant past, symptoms are not suggestive of PE. Renal insufficiency--creatinine 1.50 is near his baseline. Dementia- agitation -Haldol prn Ativan prn - supportive care Mild anemia, thrombocytopenia- check for B12 deficiency as cause for both, not overly concerning, no signs of bleeding. Anemia likely of chronic renal disease Proph- add heparin SQ
[2016-04-01] MEDS ORDERED: ISOSORBIDE MONONITRATE 60 MG TABCR PO ONE (19:15)
[2016-04-01] MEDS: METOPROLOL SUCC 50MG EXT REL TAB PO SCH (20:56)
[2016-04-01] MEDS: OLMESARTAN MEDOXOMIL 5 MG TAB PO SCH (20:56)
[2016-04-01] MEDS: SIMVASTATIN 80 MG TAB PO SCH (20:57)
[2016-04-01] MEDS: RANITIDINE HCL 150 MG TAB PO SCH (20:57)
[2016-04-01] MEDS: HEPARIN SOD 5000 UNIT/0.5 ML CARP SQ SCH (20:59)
[2016-04-02] VITALS (8 sets, daily range): BP systolic 104–161; BP diastolic 61–76; PULSE 61–77; TEMP 36.3–36.6; O2SAT 93–98
[2016-04-02] MEDS: INSULIN ASPART 100 UNITS/ML 3 ML PEN SC SCH ×4 (07:00→21:00)
[2016-04-02 07:12] LABS: BASO % 0.1 %; BASO ABS # 0.01 K/uL (0-0.2); COMPLETE YES; EOS % 2.6 %; IG% 0.4 %; LYMPH % 15.6 %; MEAN CELL VOLUME 89.4 fL (80-100); MEAN CORPUSCULAR HEMOGLOBIN 30.9 pg (25-34); MEAN CORPUSCULAR HGB CONC 34.6 g/dl (32-36); MEAN PLATELET VOLUME 11.6 fL (7.4-10.4); MONO % 9.6 %; NEUT % 71.7 %; PLATELET COUNT 126 K/uL (130-400); RED BLOOD COUNT 4.14 M/uL (4.7-6.1); WHITE BLOOD COUNT 7.68 K/uL (4.8-10.8)
[2016-04-02] MEDS: HEPARIN SOD 5000 UNIT/0.5 ML CARP SQ SCH ×2 (08:18→21:07)
[2016-04-02] MEDS: OMEGA-3 (PURIFIED FISH OIL) 1 GM CAP PO SCH (08:19)
[2016-04-02] MEDS: LEVETIRACETAM 250 MG TAB PO SCH ×2 (08:19→21:05)
[2016-04-02] MEDS: ASPIRIN 81 MG ECTAB PO SCH (08:20)
[2016-04-02] MEDS: MULTIVITAMIN TAB PO SCH (08:20)
[2016-04-02 08:22] LABS: BUN/CREATININE RATIO 22.5 (10-20); CALCIUM 8.5 mg/dl (8.5-10.1); CREATININE 1.5 mg/dl (0.60-1.40); POTASSIUM 4.1 mmol/L (3.5-5.1)
--- NOTE | 2016-04-02 09:18 | CARDIOLOGY PROGRESS NOTE ---
DATE: 04/02/2016 DATE: 04/02/2016. SUBJECTIVE: Mr. Rosa is resting comfortably in bedside chair without complaints. He is oriented to person, month, and location. Apparently experienced some chest discomfort while coughing. No angina pectoris. OBJECTIVE: VITAL SIGNS: Blood pressure is 160/76 with a regular pulse of 60. Respiratory rate is 18. The patient is afebrile at 36.4 degrees Celsius. Saturations 95% on 2 liters nasal cannula. NECK: Supple with full carotid upstrokes. There are no carotid bruits. Jugular venous pressure is flat at 90 degrees. There is no thyromegaly. CARDIOVASCULAR EXAMINATION: Reveals a regular rhythm with a normal S1 and S2. Heart sounds are distant. No obvious murmurs. LUNGS: Clear without rales, rhonchi, or wheezes. ABDOMEN: Soft and nontender without bruits. EXTREMITIES: Reveal intact radial artery and posterior tibial pulses bilaterally. There is no peripheral edema. LABORATORY DATA: CBC notes hemoglobin of 12.8, hematocrit 37.0, white count 7.6, platelet count 126,000. Electrolytes note a sodium of 143, potassium 4.1, chloride 111, bicarbonate 22, BUN 34, creatinine 1.5, glucose 118. EKG notes normal sinus rhythm and anterior T-wave abnormality. creel selector is benign. IMPRESSION AND PLAN: 1. Chest pain syndrome -- with mildly elevated troponin level. Now demonstrates anterior T-wave changes. Suspect this is either myocardial ischemia or a supply demand mismatch. Would continue with conservative medical care realizing his dementia, advanced age, and other comorbidities. We could increase his metoprolol succinate to 100 mg daily if his blood pressure remains elevated. 2. Known coronary artery disease -- status post coronary artery bypass graft x3 in 1988 with a redo procedure in 1998. 3. History of chronic stable angina pectoris. 4. Hypertension -- as above. 5. Hypercholesterolemia -- continue simvastatin. 6. Diabetes mellitus. 7. Dementia. MTDD
[2016-04-02] MEDS: ISOSORBIDE MONONITRATE 60 MG TABCR PO SCH (09:45)
--- NOTE | 2016-04-02 14:21 | Hospitalist Progress Note ---
Hospitalist Progress Note Date of Service Apr 02, 2016. Subjective Pt evaluation today including: conversation w/ patient, conversation w/ family , physical exam, chart review, lab review, review of studies, review of inpatient medication list PO Intake: cyrus po Voiding: no voiding problems Pt feels good, no events on tele, no chest pain, no SOB. BP a little low recently but did receive his Imdur last evening and this AM. Fmaily has concerns about his speech seeming to be more like his tongue is "thick." thinks it's a recent change but [id number] says she has noticed this for a while now. He does cough with liquids at times at home. Awaiting SNF placement Constitutional: No fever Respiratory: No shortness of breath Cardiovascular: No chest pain Abdomen: No pain Neurologic: + memory loss Skin: No rash All Other Systems: Reviewed and Negative Objective Vital Signs Date Time Temp Pulse Resp B/P Pulse Ox O2 Delivery O2 Flow Rate FiO2 04/02/16 11:41 36.4 71 18 143/61 98 2.0 04/02/16 08:00 94 Room Air 04/02/16 06:50 36.4 61 18 161/76 95 Nasal Cannula 2.0 04/02/16 04:00 Nasal Cannula 2.0 04/02/16 03:58 36.6 67 20 128/68 97 Nasal Cannula 2.0 04/01/16 23:59 Nasal Cannula 2.0 04/01/16 23:07 36.7 68 18 139/68 94 Nasal Cannula 2.0 04/01/16 20:43 65 180/80 04/01/16 20:00 93 Room Air 04/01/16 19:26 36.5 69 16 193/84 96 Room Air 04/01/16 16:00 93 Room Air 04/01/16 14:58 36.4 65 18 150/74 93 Room Air Physical Exam General Appearance: WD/WN, no apparent distress Eyes: normal inspection, EOMI, sclerae normal ENT: hearing grossly normal, pharynx normal (tongue protrudes in the midline, not thick, airway widely patent) Neck: trachea midline Respiratory/Chest: lungs clear, normal breath sounds, no respiratory distress, no accessory muscle use Cardiovascular: regular rate, rhythm, no edema, no gallop, no murmur Abdomen: normal bowel sounds, non tender, soft Extremities: non-tender, normal inspection, no pedal edema, no calf tenderness Neurologic/Psychiatric: no motor/sensory deficits, alert, normal mood/affect, + disoriented Skin: normal color, warm/dry, no rash Laboratory Results Last 24 Hours Test 04/01/16 16:02 04/01/16 20:31 04/02/16 06:40 04/02/16 06:54 Bedside Glucose 142 mg/dl 81 mg/dl 120 mg/dl White Blood Count 7.68 K/uL Red Blood Count 4.14 M/uL Hemoglobin 12.8 g/dL Hematocrit 37.0 % Mean Corpuscular Volume 89.4 fL Mean Corpuscular Hemoglobin 30.9 pg Mean Corpuscular Hemoglobin Concent 34.6 g/dl Platelet Count 126 K/uL Mean Platelet Volume 11.6 fL Neutrophils (%) (Auto) 71.7 % Lymphocytes (%) (Auto) 15.6 % Monocytes (%) (Auto) 9.6 % Eosinophils (%) (Auto) 2.6 % Basophils (%) (Auto) 0.1 % Neutrophils # (Auto) 5.50 K/uL Lymphocytes # (Auto) 1.20 K/uL Monocytes # (Auto) 0.74 K/uL Eosinophils # (Auto) 0.20 K/uL Basophils # (Auto) 0.01 K/uL RDW Standard Deviation 43.1 fL RDW Coefficient of Variation 13.3 % Immature Granulocyte % (Auto) 0.4 % Immature Granulocyte # (Auto) 0.03 K/uL Sodium Level 143 mmol/L Potassium Level 4.1 mmol/L Chloride Level 111 mmol/L Carbon Dioxide Level 22 mmol/L Anion Gap 10.0 mmol/L Blood Urea Nitrogen 34 mg/dl Creatinine 1.50 mg/dl Est Creatinine Clear Calc Drug Dose 33.7 ml/min Estimated GFR () 48.5 Estimated GFR (Non- 41.9 BUN/Creatinine Ratio 22.5 Random Glucose 118 mg/dl Calcium Level 8.5 mg/dl Magnesium Level 2.0 mg/dl Total Bilirubin 0.7 mg/dl Direct Bilirubin 0.1 mg/dl Aspartate Amino Transf (AST/SGOT) 20 U/L Alanine Aminotransferase (ALT/SGPT) 24 U/L Alkaline Phosphatase 100 U/L Total Protein 5.7 gm/dl Albumin 2.9 gm/dl Vitamin B12 Level 550 pg/mL Folate 23.39 ng/mL Test 04/02/16 11:21 Bedside Glucose 154 mg/dl Assessment and Plan The patient is an 85-year-old male who presents emergency department with complaints of chest pain or shortness of breath for the past 2-3 days. The patient has moderate dementia. His noted he was more short of breath at rest the morning of admission and was complaining of anginal type chest pain she gave him 3 nitroglycerin sublinguals which did not alleviate his symptoms. She given him a single dose of nitroglycerin sublinguals the day before which did seem to help. Because of the persistence and worsening symptoms she called emergency services, who gave the patient 324 mg of aspirin in route. EMS also notes that his oxygen saturation was in the upper 80s on room air upon arrival. Serial cardiac markers mildly elevated but stable. Unstable angina with history of coronary artery disease and previous stents--BP was 200 systolic on admission, now improved -continue telemetry-no events so far -f/u ECHO today-was performed this AM -continue aspirin 81 mg by mouth daily , metoprolol succinate 50 mg daily, losartan 5 mg by mouth daily. COnsider increasing Toprol to 100mg as per Cardio if BPs remain elevated -cont Imdur extended release 60 mg by mouth daily -Appreciate Cardiology consult--> conservative management given advanced age and comorbid dementia and other conditions, family in agreement with no invasive testing -d/c to rehab or SNF tomorrow Diabetes mellitus type II--hold glimeperide 1 mg by mouth daily, and place on Accu-Cheks before meals and at bedtime with NovoLog coverage. Hypercholesterolemia--continue simvastatin 80 mg by mouth at bedtime. Seizure disorder--continue Keppra 250 mg by mouth twice a day. GERD--continue ranitidine 3 mg by mouth at bedtime. PE history--occurred in the distant past, symptoms are not suggestive of PE. Renal insufficiency--creatinine 1.50 is near his baseline. Dementia- agitation--> much improved, no longer needing 1:1 -Haldol prn Ativan prn - supportive care Speech change--> sounds like subacute or gradually worsening issue, with reported cough with liquids at home. With dementia, no signs of CVA. -Consult Speech Tx Mild anemia, thrombocytopenia- B12 and folate levels normal, not overly concerning, no signs of bleeding. Anemia likely of chronic renal disease -follow CBC here and as outpatient periodically Proph- heparin SQ
--- NOTE | 2016-04-02 16:40 | ECHOCARDIOGRAM REPORT ---
*NOTICE TO RECEIVING [employer] This information is strictly Confidential and protected under [place] law. [place] law prohibits you from making any further disclosure of this information unless further disclosure is expressly permitted by the written consent of the person to whom it pertains or is authorized by law. A general authorization for the release of medical or other information is not sufficient for this purpose. Hospital accepts no responsibility if the information is made available to any other person, INCLUDING THE PATIENT. Interpretation Summary * Name: TIMOTHY IVEY Study Date: 04/02/2016 07:17 AM BP: 186/88 mmHg * Patient Location: [facility] HR: 59 * : 1930 (M/d/yyyy) Gender: Male Height: 67 in * Age: 86 yrs Ethnicity: CA Weight: 180 lb * Ordering Physician: Pranav Munguia * Performed By: Tanvi Robertson RDCS * * Reason For Study: Chest pain * BSA: 1.9 m2 * -- Conclusions -- * Compared with 11/20/13 study, minor LV wall motion abnormality no longer seen, pulmonary hypertension now seen, otherwise no significant change. * The study was technically limited. * The left ventricle is grossly normal size. * There is mild concentric left ventricular hypertrophy. * Grade I diastolic dysfunction, (abnormal relaxation pattern). * Ejection Fraction = 50-55%. * Left ventricular systolic function is normal. * No regional wall motion abnormalities noted. * Aortic valve sclerosis moderate, without significant aortic valvular stenosis. * Mild aortic regurgitation. * There is mild tricuspid regurgitation. * Right ventricular systolic pressure is elevated at 40-50mmHg. * The inferior vena cava is moderately dilated. Procedure Details * A complete two-dimensional transthoracic echocardiogram was performed (2D, M-mode, Doppler and color flow Doppler). * The study was technically limited. Left Ventricle * The left ventricle is grossly normal size. * There is mild concentric left ventricular hypertrophy. * Ejection Fraction = 50-55%. * Left ventricular systolic function is normal. * No regional wall motion abnormalities noted. Right Ventricle * The right ventricle is normal in size and function. Mitral Valve * The mitral valve is normal in structure and function. * Significant mitral regurgitation is absent. Tricuspid Valve * The tricuspid valve is normal in structure and function. * There is mild tricuspid regurgitation. * Right ventricular systolic pressure is elevated at 40-50mmHg. Aortic Valve * Aortic valve sclerosis moderate, without significant aortic valvular stenosis. * Mild aortic regurgitation. Pulmonic Valve * The pulmonary valve is inadequately visualized, but the Doppler data is adequate for interpretation. * Trace pulmonic valvular regurgitation. Great Vessels * The aortic root is normal size. * No obvious dissection could be visualized. * The pulmonary artery is normal size. Pericardium/Pleural * There is no pericardial effusion. Great Vessels * The inferior vena cava is moderately dilated. Left Ventricular Diastolic Function * Grade I diastolic dysfunction, (abnormal relaxation pattern). MMode 2D Measurements and Calculations IVSd 0.68 cm LVIDd 4.7 cm LVIDs 3.4 cm LVPWd 0.88 cm IVS/LVPW 0.77 FS 26.7 % EDV(Teich) 100.6 ml ESV(Teich) 48.1 ml EF(Teich) 52.2 % EDV(cubed) 101.5 ml ESV(cubed) 40.0 ml EF(cubed) 60.6 % LV mass(C)d 117.0 grams LV mass(C)dI 60.5 grams/m\S\2 SV(Teich) 52.5 ml SI(Teich) 27.2 ml/m\S\2 SV(cubed) 61.6 ml SI(cubed) 31.8 ml/m\S\2 Ao root diam 3.2 cm Ao root area 8.0 cm\S\2 ACS 1.6 cm asc Aorta Diam 2.8 cm LVAd ap4 21.4 cm\S\2 LVLd ap4 6.8 cm EDV(MOD-sp4) 55.2 ml EDV(sp4-el) 57.5 ml LVAs ap4 13.1 cm\S\2 LVLs ap4 5.9 cm ESV(MOD-sp4) 24.0 ml ESV(sp4-el) 24.9 ml EF(MOD-sp4) 56.5 % EF(sp4-el) 56.7 % LVAd ap2 21.4 cm\S\2 LVLd ap2 7.0 cm EDV(MOD-sp2) 53.2 ml EDV(sp2-el) 55.8 ml LVAs ap2 13.0 cm\S\2 LVLs ap2 6.0 cm ESV(MOD-sp2) 24.1 ml ESV(sp2-el) 24.0 ml EF(MOD-sp2) 54.8 % EF(sp2-el) 57.0 % LVLd %diff 3.3 % EDV(MOD-bp) 54.5 ml LVLs %diff 2.5 % ESV(MOD-bp) 23.9 ml EF(MOD-bp) 56.2 % SV(MOD-sp4) 31.2 ml SI(MOD-sp4) 16.1 ml/m\S\2 SV(MOD-sp2) 29.2 ml SI(MOD-sp2) 15.1 ml/m\S\2 SV(MOD-bp) 30.6 ml SI(MOD-bp) 15.8 ml/m\S\2 SV(sp4-el) 32.6 ml SI(sp4-el) 16.9 ml/m\S\2 SV(sp2-el) 31.8 ml SI(sp2-el) 16.5 ml/m\S\2 Doppler Measurements and Calculations MV E max mica 45.4 cm/sec MV A max mica 94.8 cm/sec MV E/A 0.48 MV dec time 0.31 sec Ao V2 max 128.0 cm/sec Ao max PG 6.6 mmHg Ao max PG (full) 4.2 mmHg LV V1 max PG 2.3 mmHg LV V1 max 76.5 cm/sec PA V2 max 58.6 cm/sec PA max PG 1.4 mmHg PA acc slope 597.1 cm/sec\S\2 PA acc time 0.10 sec PI max mica 127.6 cm/sec PI max PG 6.5 mmHg PI dec slope 86.5 cm/sec\S\2 PI P1/2t 432.2 msec TR max mica 301.6 cm/sec PA pr(Accel) 36.2 mmHg
[2016-04-02] MEDS: OLMESARTAN MEDOXOMIL 5 MG TAB PO SCH (21:05)
[2016-04-02] MEDS: METOPROLOL SUCC 50MG EXT REL TAB PO SCH (21:06)
[2016-04-02] MEDS: RANITIDINE HCL 150 MG TAB PO SCH (21:06)
[2016-04-02] MEDS: SIMVASTATIN 80 MG TAB PO SCH (21:06)
[2016-04-03] VITALS (10 sets, daily range): BP systolic 107–174; BP diastolic 60–81; PULSE 61–84; TEMP 35.9–37; O2SAT 90–100
[2016-04-03] MEDS: INSULIN ASPART 100 UNITS/ML 3 ML PEN SC SCH ×4 (07:00→20:30)
[2016-04-03 07:44] LABS: BASO % 0.2 %; BASO ABS # 0.02 K/uL (0-0.2); COMPLETE YES; EOS % 2.3 %; HEMATOCRIT 39.7 % (42-52); IG% 0.5 %; LYMPH % 16.1 %; LYMPH ABS # 1.37 K/uL (1.2-3.4); MEAN CELL VOLUME 90.8 fL (80-100); MEAN CORPUSCULAR HGB CONC 35.3 g/dl (32-36); MEAN PLATELET VOLUME 11.4 fL (7.4-10.4); MONO % 11.8 %; NEUT % 69.1 %; PLATELET COUNT 138 K/uL (130-400); RED BLOOD COUNT 4.37 M/uL (4.7-6.1); WHITE BLOOD COUNT 8.53 K/uL (4.8-10.8)
[2016-04-03 08:48] LABS: BUN/CREATININE RATIO 22.7 (10-20); CALCIUM 9.7 mg/dl (8.5-10.1); CREATININE 1.8 mg/dl (0.60-1.40); MAGNESIUM 2.4 mg/dl (1.8-2.4); POTASSIUM 5.4 mmol/L (3.5-5.1)
[2016-04-03] MEDS: ISOSORBIDE MONONITRATE 60 MG TABCR PO SCH (09:26)
[2016-04-03] MEDS: OMEGA-3 (PURIFIED FISH OIL) 1 GM CAP PO SCH (09:26)
[2016-04-03] MEDS: ASPIRIN 81 MG ECTAB PO SCH (09:26)
[2016-04-03] MEDS: MULTIVITAMIN TAB PO SCH (09:26)
[2016-04-03] MEDS: LEVETIRACETAM 250 MG TAB PO SCH ×2 (09:26→20:30)
[2016-04-03] MEDS: HEPARIN SOD 5000 UNIT/0.5 ML CARP SQ SCH ×2 (09:31→20:32)
[2016-04-03] MEDS ORDERED: SODIUM CHLORIDE 0.9% 500ML 500 ML IV STA (10:49)
--- NOTE | 2016-04-03 10:56 | CARDIOLOGY PROGRESS NOTE ---
DATE: 04/03/2016 Mr. Rosa is resting comfortably in bed without complaints of chest pain or dyspnea. He is tearful as no family member stayed with him last evening. OBJECTIVE: VITAL SIGNS: Blood pressure ranges from 130-160/60-80. Respiratory rate is 18. The patient is afebrile at 36.5 degrees Celsius. Saturations 91% on room air. NECK: Supple with full carotid upstrokes. There are no carotid bruits. Jugular venous pressure is flat at 90 degrees. There is no thyromegaly. CARDIOVASCULAR: Reveals a regular rhythm with normal S1 and S2. Heart sounds are distant. No obvious murmurs. LUNGS: Clear without rales, rhonchi, or wheezes. ABDOMEN: Benign without bruits. EXTREMITIES: Reveal intact radial artery pulses bilaterally. There is no peripheral edema. DATA: CBC notes hemoglobin 14.0, hematocrit 39.7, white count 8.5, platelet count 138,000. Electrolytes note a sodium of 148, potassium 5.4, chloride 113, bicarb 24, BUN 41, creatinine 1.8, glucose 140. 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 Echocardiogram interpreted yesterday by Dr. Cleaning notes normal left ventricular systolic function with an ejection fraction of 50% to 55%. There are no wall motion abnormalities. There is evidence of mild left ventricular hypertrophy and diastolic dysfunction. There is aortic valve sclerosis and mild aortic insufficiency. IMPRESSION AND PLAN: 1. Chest pain syndrome -- as before, I suspect this is either myocardial ischemia versus a supply demand mismatch, as he is quite hypertensive at time of presentation. Would continue with conservative medical care realizing his dementia, advanced age, and his comorbidities. Could increase metoprolol succinate, if blood pressure dictates. However, did demonstrate some hypotension yesterday. 2. Known coronary artery disease -- status post coronary artery bypass grafting x3 in 1988 with a redo procedure in 1998. 3. History of chronic, stable angina pectoris. 4. Hypertension -- as above. 5. Hypercholesterolemia -- continue simvastatin. 6. Diabetes mellitus. 7. Dementia.
[2016-04-03 13:37] LABS: BUN/CREATININE RATIO 23.2 (10-20); CALCIUM 8.6 mg/dl (8.5-10.1); CREATININE 1.6 mg/dl (0.60-1.40); POTASSIUM 4.2 mmol/L (3.5-5.1)
[2016-04-03] MEDS ORDERED: OLME5TAB3 PO (14:07)
[2016-04-03] MEDS ORDERED: METO50TA7 PO (14:07)
[2016-04-03] MEDS ORDERED: NVLGIPEN SC (14:07)
[2016-04-03 16:06] LABS: BASO % 0.3 %; BASO ABS # 0.02 K/uL (0-0.2); COMPLETE YES; EOS % 1.7 %; HEMATOCRIT 37.6 % (42-52); IG% 0.4 %; LYMPH % 8.9 %; LYMPH ABS # 0.67 K/uL (1.2-3.4); MEAN CELL VOLUME 89.5 fL (80-100); MEAN CORPUSCULAR HGB CONC 34.6 g/dl (32-36); MEAN PLATELET VOLUME 11.4 fL (7.4-10.4); MONO % 10.2 %; NEUT % 78.5 %; PLATELET COUNT 122 K/uL (130-400); WHITE BLOOD COUNT 7.56 K/uL (4.8-10.8)
--- NOTE | 2016-04-03 16:14 | DIAGNOSTIC IMAGING REPORT ---
CT HEAD WITHOUT CONTRAST (CT) CLINICAL HISTORY: seizure COMPARISON STUDY: 02/07/2015 TECHNIQUE: Axial CT of the brain is performed from the vertex to the skull base. IV contrast was not administered for this examination. CT DOSE: 537.48 mGy.cm FINDINGS: No intra or extra-axial mass lesions are visualized. There is no CT evidence of acute cortical infarction. There is no evidence of midline shift. There is no acute hemorrhage. No calvarial fractures are visualized. There are patchy white matter hypodensities likely on a small vessel basis. There is no evidence of pathologic ventricular dilatation. There is no evidence of acute sinusitis IMPRESSION: No acute intracranial findings Electronically signed by: Rex Acosta M.D. 04/03/2016 4:12 PM Dictated Date/Time: 04/03/2016 4:12 PM
--- NOTE | 2016-04-03 18:22 | Hospitalist Progress Note ---
Hospitalist Progress Note Date of Service Apr 03, 2016. Subjective Pt evaluation today including: conversation w/ patient, conversation w/ family , physical exam, chart review, lab review, review of studies, conversation w/ bridal sales consultant (Neurology), review of inpatient medication list When I saw pt this AM, he was doing great, was more oriented, no CP or SOB, was eating and drinking. He was seen by Speech Tx and recommended slippery diet. Plans were made for dc to SNF. He was not drinking enough free water and was mildly hypernatremic and hyperkalemic. He was given a gentle bolus of NS 500 mL and repeat labs were normal. Just prior to discharge, was dressing him and she noted him to get very pale, eyes rolled back into his head, was gasping a couple times for breath, arms became flexed and rigid, and his head turned to the left. This went on for a couple of min. She immediately called for help and RN witnessed this as well. I came 5 min later and pt was lying in bed, drowsy but responded to some questions, was able to follow commands to move all his extremities, did not have any weakness or facial droop, no slurred speech. He then had a very large bowel movement which was incontinent. ECG was normal, labs drawn and were stable, and head CT negative for acute process. Neurology was contacted and case discussed. Cancelled discharge and started on Vimpat, plan for EEG in the AM. Constitutional: No fever Eyes: No problem reported Respiratory: No shortness of breath Cardiovascular: No chest pain Abdomen: No constipation, No pain Neurologic: + memory loss, + problem reported (seizure as per HPI), No paralysis, No weakness Psychiatric: No problem reported Skin: No rash Objective Vital Signs Date Time Temp Pulse Resp B/P Pulse Ox O2 Delivery O2 Flow Rate FiO2 04/03/16 15:50 36.3 76 16 136/76 95 Nasal Cannula 4.0 04/03/16 14:36 84 18 174/81 97 Room Air 04/03/16 12:00 94 Room Air 04/03/16 11:34 36.6 69 18 107/64 94 Room Air 04/03/16 11:10 100 Room Air 04/03/16 08:10 36.5 61 18 167/79 91 Room Air 04/03/16 08:00 Room Air 04/03/16 04:15 Room Air 04/03/16 03:21 35.9 62 20 131/60 90 Room Air 04/03/16 00:45 36.5 65 20 156/74 91 Room Air 04/03/16 00:29 Room Air 04/02/16 20:33 Room Air 04/02/16 18:40 36.4 77 20 117/62 93 Nasal Cannula Physical Exam General Appearance: WD/WN, no apparent distress (lying in bed, follows simple commands, answers yes and no questions) Eyes: normal inspection, PERRL, EOMI, sclerae normal ENT: hearing grossly normal, pharynx normal Neck: supple, trachea midline Respiratory/Chest: lungs clear, normal breath sounds, no respiratory distress, no accessory muscle use Cardiovascular: regular rate, rhythm, no edema, no gallop, no JVD, no murmur Abdomen: normal bowel sounds, non tender, soft, no organomegaly, no pulsatile mass Extremities: normal range of motion, non-tender, normal inspection, no pedal edema, no calf tenderness Neurologic/Psychiatric: no motor/sensory deficits (could move all extremities and hold them all in air against some resistance, no pronator drift, sensation intact to lt touch), alert, + disoriented, + pertinent finding (CN 2-12 not able to be fully tested due to underlying dementia but no obvious facial weakness, PERRL, was bale to gaze in all directions spontaneously, hearing intact) Skin: normal color, warm/dry, no rash Laboratory Results Last 24 Hours Test 04/02/16 20:29 04/03/16 07:21 04/03/16 07:24 04/03/16 11:11 Bedside Glucose 155 mg/dl 123 mg/dl 170 mg/dl White Blood Count 8.53 K/uL Red Blood Count 4.37 M/uL Hemoglobin 14.0 g/dL Hematocrit 39.7 % Mean Corpuscular Volume 90.8 fL Mean Corpuscular Hemoglobin 32.0 pg Mean Corpuscular Hemoglobin Concent 35.3 g/dl Platelet Count 138 K/uL Mean Platelet Volume 11.4 fL Neutrophils (%) (Auto) 69.1 % Lymphocytes (%) (Auto) 16.1 % Monocytes (%) (Auto) 11.8 % Eosinophils (%) (Auto) 2.3 % Basophils (%) (Auto) 0.2 % Neutrophils # (Auto) 5.89 K/uL Lymphocytes # (Auto) 1.37 K/uL Monocytes # (Auto) 1.01 K/uL Eosinophils # (Auto) 0.20 K/uL Basophils # (Auto) 0.02 K/uL RDW Standard Deviation 43.8 fL RDW Coefficient of Variation 13.5 % Immature Granulocyte % (Auto) 0.5 % Immature Granulocyte # (Auto) 0.04 K/uL Sodium Level 148 mmol/L Potassium Level 5.4 mmol/L Chloride Level 113 mmol/L Carbon Dioxide Level 24 mmol/L Anion Gap 11.0 mmol/L Blood Urea Nitrogen 41 mg/dl Creatinine 1.80 mg/dl Est Creatinine Clear Calc Drug Dose 28.1 ml/min Estimated GFR () 38.9 Estimated GFR (Non- 33.6 BUN/Creatinine Ratio 22.7 Random Glucose 140 mg/dl Calcium Level 9.7 mg/dl Magnesium Level 2.4 mg/dl Total Bilirubin 0.7 mg/dl Direct Bilirubin 0.2 mg/dl Aspartate Amino Transf (AST/SGOT) 21 U/L Alanine Aminotransferase (ALT/SGPT) 30 U/L Alkaline Phosphatase 114 U/L Total Protein 6.6 gm/dl Albumin 3.4 gm/dl Test 04/03/16 13:03 04/03/16 14:29 04/03/16 15:46 04/03/16 16:20 Sodium Level 143 mmol/L Potassium Level 4.2 mmol/L Chloride Level 109 mmol/L Carbon Dioxide Level 24 mmol/L Anion Gap 10.0 mmol/L Blood Urea Nitrogen 37 mg/dl Creatinine 1.60 mg/dl Est Creatinine Clear Calc Drug Dose 31.6 ml/min Estimated GFR () 44.9 Estimated GFR (Non- 38.7 BUN/Creatinine Ratio 23.2 Random Glucose 164 mg/dl Calcium Level 8.6 mg/dl Bedside Glucose 133 mg/dl 105 mg/dl White Blood Count 7.56 K/uL Red Blood Count 4.20 M/uL Hemoglobin 13.0 g/dL Hematocrit 37.6 % Mean Corpuscular Volume 89.5 fL Mean Corpuscular Hemoglobin 31.0 pg Mean Corpuscular Hemoglobin Concent 34.6 g/dl Platelet Count 122 K/uL Mean Platelet Volume 11.4 fL Neutrophils (%) (Auto) 78.5 % Lymphocytes (%) (Auto) 8.9 % Monocytes (%) (Auto) 10.2 % Eosinophils (%) (Auto) 1.7 % Basophils (%) (Auto) 0.3 % Neutrophils # (Auto) 5.94 K/uL Lymphocytes # (Auto) 0.67 K/uL Monocytes # (Auto) 0.77 K/uL Eosinophils # (Auto) 0.13 K/uL Basophils # (Auto) 0.02 K/uL RDW Standard Deviation 43.5 fL RDW Coefficient of Variation 13.5 % Immature Granulocyte % (Auto) 0.4 % Immature Granulocyte # (Auto) 0.03 K/uL Troponin I 0.039 ng/ml Prolactin 13.10 ng/mL Assessment and Plan The patient is an 85-year-old male who presents emergency department with complaints of chest pain or shortness of breath for the past 2-3 days. The patient has moderate dementia. His noted he was more short of breath at rest the morning of admission and was complaining of anginal type chest pain she gave him 3 nitroglycerin sublinguals which did not alleviate his symptoms. She given him a single dose of nitroglycerin sublinguals the day before which did seem to help. Because of the persistence and worsening symptoms she called emergency services, who gave the patient 324 mg of aspirin in route. EMS also notes that his oxygen saturation was in the upper 80s on room air upon arrival. Serial cardiac markers mildly elevated but stable. Had seizure on 04/03/16 while preparing for d/c to SNF--> d/c cancelled. Unstable angina with history of coronary artery disease and previous stents, Chronic Diastolic CHF--BP was 200 systolic on admission, now improved -continue telemetry-no events -ECHO showed: * Compared with 11/20/13 study, minor LV wall motion abnormality no longer seen, pulmonary hypertension now seen, otherwise no significant change. * The study was technically limited. * The left ventricle is grossly normal size. * There is mild concentric left ventricular hypertrophy. * Grade I diastolic dysfunction, (abnormal relaxation pattern). * Ejection Fraction = 50-55%. * Left ventricular systolic function is normal. * No regional wall motion abnormalities noted. * Aortic valve sclerosis moderate, without significant aortic valvular stenosis. * Mild aortic regurgitation. * There is mild tricuspid regurgitation. * Right ventricular systolic pressure is elevated at 40-50mmHg. * The inferior vena cava is moderately dilated. -continue aspirin 81 mg by mouth daily , metoprolol succinate 50 mg daily, losartan 5 mg by mouth daily. Consider increasing Toprol to 100mg as per Cardio if BPs remain elevated -cont Imdur extended release 60 mg by mouth daily -Appreciate Cardiology consult--> conservative management given advanced age and comorbid dementia and other conditions, family in agreement with no invasive testing -d/c to rehab or SNF tomorrow Seizure disorder-had witnessed probable seizure in house on 04/03 that resolved on own. Head CT neg, ECG negative, labs stable. -continue Keppra 250 mg by mouth twice a day -add on Vimpat 50mg po bid -EEG in the AM -Appreciate Neuro consultation Diabetes mellitus type II--hold glimeperide 1 mg by mouth daily, and place on Accu-Cheks before meals and at bedtime with NovoLog coverage. Hypercholesterolemia--continue simvastatin 80 mg by mouth at bedtime. GERD--continue ranitidine 3 mg by mouth at bedtime. PE history--occurred in the distant past, symptoms are not suggestive of PE. Renal insufficiency--creatinine 1.50 is near his baseline. Dementia- agitation--> much improved, no longer needing 1:1 -Haldol prn Ativan prn - supportive care Speech change--> sounds like subacute or gradually worsening issue, with reported cough with liquids at home. With dementia, no signs of CVA. -Consult Speech Tx appreciated-recommend slippery diet Mild anemia, thrombocytopenia- B12 and folate levels normal, not overly concerning, no signs of bleeding. Anemia likely of chronic renal disease -follow CBC here and as outpatient periodically Proph- heparin SQ
[2016-04-03] MEDS: SIMVASTATIN 80 MG TAB PO SCH (20:30)
[2016-04-03] MEDS: LACOSAMIDE 50 MG TAB PO SCH (20:30)
[2016-04-03] MEDS: OLMESARTAN MEDOXOMIL 5 MG TAB PO SCH (20:30)
[2016-04-03] MEDS: RANITIDINE HCL 150 MG TAB PO SCH (20:30)
[2016-04-03] MEDS: METOPROLOL SUCC 50MG EXT REL TAB PO SCH (20:30)
[2016-04-04 00:22] VITALS: BP 178/70; PULSE 66; TEMP 36.2; O2SAT 92
[2016-04-04 04:44] VITALS: BP 140/73; PULSE 59; TEMP 36.3; O2SAT 92
[2016-04-04] MEDS: INSULIN ASPART 100 UNITS/ML 3 ML PEN SC SCH ×2 (07:00→11:00)
[2016-04-04 08:05] LABS: HEMATOCRIT 38.3 % (42-52); MEAN CELL VOLUME 90.5 fL (80-100); MEAN CORPUSCULAR HEMOGLOBIN 31.4 pg (25-34); MEAN CORPUSCULAR HGB CONC 34.7 g/dl (32-36); MEAN PLATELET VOLUME 11.8 fL (7.4-10.4); PLATELET COUNT 125 K/uL (130-400); RED BLOOD COUNT 4.23 M/uL (4.7-6.1); WHITE BLOOD COUNT 8.05 K/uL (4.8-10.8)
[2016-04-04] MEDS: MULTIVITAMIN TAB PO SCH (08:05)
[2016-04-04] MEDS: OMEGA-3 (PURIFIED FISH OIL) 1 GM CAP PO SCH (08:05)
[2016-04-04] MEDS: LACOSAMIDE 50 MG TAB PO SCH (08:05)
[2016-04-04] MEDS: LEVETIRACETAM 250 MG TAB PO SCH (08:05)
[2016-04-04] MEDS: ASPIRIN 81 MG ECTAB PO SCH (08:06)
[2016-04-04] MEDS: ISOSORBIDE MONONITRATE 60 MG TABCR PO SCH (08:06)
[2016-04-04] MEDS: HEPARIN SOD 5000 UNIT/0.5 ML CARP SQ SCH (08:09)
[2016-04-04 09:08] LABS: BUN/CREATININE RATIO 21.1 (10-20); CALCIUM 8.8 mg/dl (8.5-10.1); CREATININE 1.5 mg/dl (0.60-1.40); MAGNESIUM 2.1 mg/dl (1.8-2.4); POTASSIUM 4.2 mmol/L (3.5-5.1)
--- NOTE | 2016-04-04 09:54 | EEG Procedure Note ---
EEG Procedure Note Date of Service Apr 04, 2016. Start / End Times Start Time: 5:45 AM End Time: 6:05 AM Referring Physician Jeni Rose History This is a 86-year-old male who had a witnessed seizure-like episode yesterday. EEG for further evaluation of seizures Pertinent Medications: Keppra and Vimpat Home Medication List Scheduled Aspirin (Ecotrin Low Strength), 81 MG PO HS Fish Oil ([place]-3), 1 TAB PO DAILY Glimepiride (Glimepiride), 1 MG PO DAILY Insulin Aspart (Novolog Flexpen), 0 UNITS SC ACHS Isosorbide Mononitrate (Imdur Ext Rel), 60 MG PO DAILY Levetiractam (Keppra), 250 MG PO BID Metoprolol Succ (Toprol Xl) (Toprol-Xl), 1 TAB PO HS Multivitamin (Multivitamin), 1 TABLET PO DAILY Nitroglycerin (Nitrostat), 0.4 MG UT PRN Olmesartan Medoxomil (Olmesartan Medoxomil), 5 MG PO HS Ranitidine Hcl (Zantac), 300 MG PO HS Simvastatin (Zocor), 80 MG PO HS Inpatient Medication List Current Inpatient Medications Medications (Trade) Dose Ordered Sig/Norma Route Start Time Stop Time Status Last Admin Dose Admin Aspirin (Ecotrin Tab) 81 mg QAM PO 04/01/16 09:00 05/01/16 08:59 04/04/16 08:06 81 MG Fish Oil ([place]-3 (Purified Fish Oil) Cap) 1 gm DAILY PO 04/01/16 09:00 05/01/16 08:59 04/04/16 08:05 1 GM Levetiracetam (Keppra Tab) 250 mg BID PO 03/31/16 21:00 04/30/16 20:59 04/04/16 08:05 250 MG Multivitamins (Multivitamin Tab) 1 tab DAILY PO 04/01/16 09:00 05/01/16 08:59 04/04/16 08:05 1 TAB Nitroglycerin (Nitrostat Tab) 0.4 mg UD PRN UT 03/31/16 14:45 04/30/16 14:44 Ranitidine HCl (zANTac TAB) 300 mg HS PO 03/31/16 21:00 04/30/16 20:59 2/2/17 20:30 300 MG Simvastatin (Zocor Tab) 80 mg HS PO 03/31/16 21:00 04/30/16 20:59 04/03/16 20:30 80 MG Acetaminophen (Tylenol Tab) 650 mg Q4H PRN PO 03/31/16 15:00 04/30/16 14:59 Zolpidem Tartrate (Ambien Tab) 5 mg HSZ PRN PO 03/31/16 15:00 04/30/16 14:59 Ondansetron HCl (Zofran Inj) 4 mg Q6H PRN IV 03/31/16 15:00 04/30/16 14:59 Insulin Aspart (novoLOG ASPART) SLIDING SCALE If C... ACHS SC 03/31/16 16:15 04/30/16 16:14 04/04/16 07:00 3 UNITS Glucose (Glucose 40% Gel) UD PRN PO 03/31/16 15:00 04/30/16 14:59 Glucose (Glucose Chew Tab) 1 tabs UD PRN PO 03/31/16 15:00 04/30/16 14:59 Dextrose (Dextrose 50% 50ML Syringe) 50 ml UD PRN IV 03/31/16 15:00 04/30/16 14:59 Glucagon (Glucagon Inj) 1 mg UD PRN SQ 03/31/16 15:00 04/30/16 14:59 Metoprolol Succinate (Toprol Xl Tab) 50 mg QPM PO 03/31/16 21:00 04/30/16 20:59 04/03/16 20:30 50 MG Olmesartan (Benicar) 5 mg QPM PO 03/31/16 21:00 04/30/16 20:59 04/03/16 20:30 5 MG Haloperidol Lactate (Haldol Inj) 5 mg DAILY PRN IM 04/01/16 08:00 05/01/16 07:59 Isosorbide Mononitrate (Imdur Ext Rel Tab) 60 mg QAM PO 04/02/16 09:00 05/02/16 08:59 04/04/16 08:06 60 MG Hydralazine HCl (HydrALAZINE INJ) 10 mg Q8 PRN IV. 04/01/16 17:45 05/01/16 17:44 Heparin Sodium (Porcine) (Heparin Sq 5000 Unit/0.5ml) 5,000 unit Q12 SQ 04/01/16 22:00 05/01/16 21:59 04/04/16 08:09 5,000 UNIT Lacosamide (Vimpat Tab) 50 mg BID PO 04/03/16 21:00 05/03/16 20:59 04/04/16 08:05 50 MG Description This is a 21 electrode EEG with a single channel dedicated to limited EKG. The electrodes were placed in accordance with the International 10-20 system. At the start of this recording the patient was and reported altered mental status. Background was poorly organized with no anterior to posterior gradient. Background was composed of predominantly 5-6 Hz theta frequencies with intermixed alpha frequencies and intermittent delta slowing. Hyperventilation was not done. Photic stimulation at various frequencies produced no abnormalities. There was no state changes or sleep transients. Interpretation This is an abnormal routine EEG secondary to moderate background disorganization and slowing. There was no focal slowing, electrographic seizures or epileptiform discharges. Clinical Correlation This EEG indicates a moderate encephalopathy of nonspecific etiology.
--- NOTE | 2016-04-04 10:14 | Neurology Consultation ---
Neurology Consultation Date of Consultation: Apr 04, 2016. Attending Physician: Jeni Rose MD Primary Care Physician: Jose Mae M.D. Reason for Consultation: Consultation for seizure History of Present Illness Source: patient, clinic records, hospital records This is a 86-year-old male who initially presented to the hospital with chest pain and shortness of breath with mild increased troponin. He had received his cardiac workup and was about to be discharged yesterday when his witnessed a seizure like episode. Patient had been seen in the past by Dr. Chang in neurology clinic for dementia and unresponsive spells concerning for possible focal seizures. It sounds like per the clinic notes the patient had been briefly tried on Lamictal and did not tolerate it. Patient had been tried on Keppra which seem to decrease these spells significantly, but did not tolerate Keppra at higher doses compared to 250 twice a day. Patient's reports that he had unresponsive episode a few months ago but otherwise is basically had no episodes concerning for seizures in the last 2 years since being put on Keppra. Yesterday the reports that the patient suddenly had stiff flexed arms bilaterally and appeared to be leaning to the right. She reports that his eyes were open and rolled up and is conjugate. She got the attention of the nursing staff who documented that they felt that his head was maybe turned to the left and he was incontinent of stool. Nursing and physician documentation notes that he was groggy appeared to be postictal afterwards. thinks that this episode lasted a couple minutes. There is been no additional episodes since then concerning for seizures. The patient appears to be back to his baseline this morning. Per my recommendations over the phone yesterday the patient was started on Vimpat 50 mg twice a day. He has continued his home dose of Keppra 250 mg twice a day. Patient denies any feeling of being overmedicated, dizzy, or any other medication side effects since starting Vimpat last night. Patient does have an upcoming neurology appointment with Dr. Chang in [place] in July. In reviewing the patient's past workup there was a questionable EEG read in 2013 with possible sharply contoured focal sharp waves versus normal variant. MRI of the brain done in 2015 was unremarkable for any structural focus for seizures. CT of the head done yesterday was unremarkable. Past Medical/Surgical History Medical Problems: (1) Near syncope Status: Acute (2) NSTEMI (non-ST elevated myocardial infarction) Status: Acute (3) Orthostatic hypotension Status: Acute Past medical history sniff and for CAD, hypertension, dyslipidemia, diabetes, dementia, seizure with unresponsiveness and speech arrest, non-Hodgkin's, hypertension, TIA, CKD Family History Significant for CAD Father: heart disease Mother: heart disease Sibling(s): heart disease, cancer Social History No reported current alcohol or tobacco use use. Normally walks unassisted. No recent falls reported. Lives and is taking care of by his . Smoking Status: Never smoker Smokeless Tobacco Use: No Alcohol Use: none Drug Use: none Marital Status: Housing Status: lives with family ([place]) Occupation Status: retired Allergies Coded Allergies: Adhesives (Verified Allergy, Unknown, UNKN, 02/07/15) Procaine (Verified Allergy, Unknown, UNKNOWN, 02/07/15) Morphine (Verified Adverse Reaction, Unknown, UNKN, 02/07/15) Current Inpatient Medications Current Inpatient Medications Medications (Trade) Dose Ordered Sig/Norma Route Start Time Stop Time Status Last Admin Dose Admin Aspirin (Ecotrin Tab) 81 mg QAM PO 04/01/16 09:00 05/01/16 08:59 04/04/16 08:06 81 MG Fish Oil ([place]-3 (Purified Fish Oil) Cap) 1 gm DAILY PO 04/01/16 09:00 05/01/16 08:59 04/04/16 08:05 1 GM Levetiracetam (Keppra Tab) 250 mg BID PO 03/31/16 21:00 04/30/16 20:59 04/04/16 08:05 250 MG Multivitamins (Multivitamin Tab) 1 tab DAILY PO 04/01/16 09:00 05/01/16 08:59 04/04/16 08:05 1 TAB Nitroglycerin (Nitrostat Tab) 0.4 mg UD PRN UT 03/31/16 14:45 04/30/16 14:44 Ranitidine HCl (zANTac TAB) 300 mg HS PO 03/31/16 21:00 04/30/16 20:59 04/03/16 20:30 300 MG Simvastatin (Zocor Tab) 80 mg HS PO 03/31/16 21:00 04/30/16 20:59 04/03/16 20:30 80 MG Acetaminophen (Tylenol Tab) 650 mg Q4H PRN PO 03/31/16 15:00 04/30/16 14:59 Zolpidem Tartrate (Ambien Tab) 5 mg HSZ PRN PO 03/31/16 15:00 04/30/16 14:59 Ondansetron HCl (Zofran Inj) 4 mg Q6H PRN IV 03/31/16 15:00 04/30/16 14:59 Insulin Aspart (novoLOG ASPART) SLIDING SCALE If C... ACHS SC 03/31/16 16:15 04/30/16 16:14 04/04/16 07:00 3 UNITS Glucose (Glucose 40% Gel) UD PRN PO 03/31/16 15:00 04/30/16 14:59 Glucose (Glucose Chew Tab) 1 tabs UD PRN PO 03/31/16 15:00 04/30/16 14:59 Dextrose (Dextrose 50% 50ML Syringe) 50 ml UD PRN IV 03/31/16 15:00 04/30/16 14:59 Glucagon (Glucagon Inj) 1 mg UD PRN SQ 03/31/16 15:00 04/30/16 14:59 Metoprolol Succinate (Toprol Xl Tab) 50 mg QPM PO 03/31/16 21:00 04/30/16 20:59 04/03/16 20:30 50 MG Olmesartan (Benicar) 5 mg QPM PO 03/31/16 21:00 04/30/16 20:59 04/03/16 20:30 5 MG Haloperidol Lactate (Haldol Inj) 5 mg DAILY PRN IM 04/01/16 08:00 05/01/16 07:59 Isosorbide Mononitrate (Imdur Ext Rel Tab) 60 mg QAM PO 04/02/16 09:00 05/02/16 08:59 04/04/16 08:06 60 MG Hydralazine HCl (HydrALAZINE INJ) 10 mg Q8 PRN IV. 04/01/16 17:45 05/01/16 17:44 Heparin Sodium (Porcine) (Heparin Sq 5000 Unit/0.5ml) 5,000 unit Q12 SQ 04/01/16 22:00 05/01/16 21:59 04/04/16 08:09 5,000 UNIT Lacosamide (Vimpat Tab) 50 mg BID PO 04/03/16 21:00 05/03/16 20:59 04/04/16 08:05 50 MG Review of Systems Except for the above noted in history of present illness, complete review of systems otherwise negative Physical Exam Vital Signs (Past 24 Hrs): Date Time Temp Pulse Resp B/P Pulse Ox O2 Delivery O2 Flow Rate FiO2 04/04/16 04:44 36.3 59 140/73 92 Room Air 04/04/16 04:24 Room Air 04/04/16 00:22 36.2 66 21 178/70 92 Room Air 04/04/16 00:17 Room Air 04/03/16 20:38 Room Air 04/03/16 20:02 37.0 76 16 147/71 98 Room Air 04/03/16 16:00 98 Nasal Cannula 4.0 04/03/16 15:50 36.3 76 16 136/76 95 Nasal Cannula 4.0 04/03/16 14:36 84 18 174/81 97 Room Air 04/03/16 12:00 94 Room Air 04/03/16 11:34 36.6 69 18 107/64 94 Room Air 04/03/16 11:10 100 Room Air Gen.: Patient is alert and sitting in chair, in no acute distress. HEENT: Normocephalic /atraumatic, no scleral icterus Heart: Regular rate and rhythm Extremities: No gross deformities or rashes noted Neurological examination: Mental status: Patient is alert and oriented to person, place, year, month, and current president. Mentation does seem somewhat slow. Attention and concentration normal for the situation. Able to give subjective history but not remote history. Speech is fluent without any dysarthria or aphasia noted. Speech is somewhat sparse Cranial nerve: Funduscopic examination was limited but unremarkable. Pupils equally round and reactive to light. Extraocular muscles intact without nystagmus. No facial asymmetry noted. Facial sensation intact. Tongue is midline. Good palatal elevation. Good shoulder shrug bilaterally. Hearing grossly intact to voice. Strength: 5/5 both proximal and distally in all extremities. There is no arm drift. Tone is normal. Sensation: Grossly intact to light touch in all extremities. Deep tendon reflexes: +1 in bilateral biceps, brachioradialis and patellar. Coordination: Patient had good finger to nose without dysmetria Station within the chair was normal Laboratory Results Past 24 Hours: 04/04/16 07:00 04/04/16 07:00 Test 04/03/16 15:46 04/03/16 20:30 04/04/16 07:00 Immature Granulocyte % (Auto) 0.4 % White Blood Count 7.56 K/uL (4.8-10.8) Red Blood Count 4.20 M/uL (4.7-6.1) 4.23 M/uL (4.7-6.1) Hemoglobin 13.0 g/dL (14.0-18.0) Hematocrit 37.6 % (42-52) Mean Corpuscular Volume 89.5 fL (80-100) 90.5 fL (80-100) Mean Corpuscular Hemoglobin 31.0 pg (25-34) 31.4 pg (25-34) Mean Corpuscular Hemoglobin Concent 34.6 g/dl (32-36) 34.7 g/dl (32-36) Platelet Count 122 K/uL (130-400) Mean Platelet Volume 11.4 fL (7.4-10.4) 11.8 fL (7.4-10.4) Neutrophils (%) (Auto) 78.5 % Lymphocytes (%) (Auto) 8.9 % Monocytes (%) (Auto) 10.2 % Eosinophils (%) (Auto) 1.7 % Basophils (%) (Auto) 0.3 % Neutrophils # (Auto) 5.94 K/uL (1.4-6.5) Lymphocytes # (Auto) 0.67 K/uL (1.2-3.4) Monocytes # (Auto) 0.77 K/uL (0.11-0.59) Eosinophils # (Auto) 0.13 K/uL (0-0.5) Basophils # (Auto) 0.02 K/uL (0-0.2) Immature Granulocyte # (Auto) 0.03 K/uL (0.00-0.02) Prolactin 13.10 ng/mL Bedside Glucose 130 mg/dl (70-99) RDW Standard Deviation 44.2 fL (36.4-46.3) RDW Coefficient of Variation 13.7 % (11.5-14.5) Anion Gap 12.0 mmol/L (3-11) Est Creatinine Clear Calc Drug Dose 33.7 ml/min Estimated GFR () 48.5 Estimated GFR (Non- 41.9 BUN/Creatinine Ratio 21.1 (10-20) Calcium Level 8.8 mg/dl (8.5-10.1) Magnesium Level 2.1 mg/dl (1.8-2.4) Troponin I 0.063 ng/ml (0-0.045) Imaging As noted above in history of present illness Impression This is a 86-year-old male with dementia and suspected focal seizures in the past. Had an episode of what sounds like a convincing epileptic seizure with flexed tonic upper extremities and possibly head turning to the left. Patient has not been able to tolerate Lamictal and higher doses of Keppra in the past. Patient is back to his neurological baseline this morning. No reported meditation side effects to newly initiated Vimpat last night Plan EEG recommended by myself yesterday showed nonspecific slowing this morning indicating moderate encephalopathy of nonspecific etiology. There was no electric seizures or epileptiform discharges. Yesterday recommended adding on Vimpat 50 mg twice a day for seizure prophylaxis. Patient appears to be doing well with this with no medication side effects. Recommended continuing with low-dose Keppra without change for now. In the future if the patient does well with Vimpat, could consider discontinuation of Keppra and adjusting Vimpat as needed. Discussed common side effects of dizziness or sedation with Vimpat. Follow-up with Dr. Chang in neurology [place] [facility] as previously scheduled in July. Instructed the to give us a call in 1 month to let us know how he is doing on new medication to make sure that we do not have to make any adjustments. Also instructed the to give us a call sooner if she is concerned about medication side effects or any episodes concerning for seizures. Patient is stable from a neurological standpoint to be discharged if desired. Thank you for allowing me to participate in this patient's care. If there is any questions or concerns, feel free to call/page me.
--- NOTE | 2016-04-04 10:26 | CARDIOLOGY PROGRESS NOTE ---
DATE: 04/04/2016 SUBJECTIVE: Mr. Rosa is resting comfortably in bedside chair without complaints of chest pain or dyspnea. He is anxious for hospital discharge. OBJECTIVE: VITAL SIGNS: Blood pressure 140/73 with a regular pulse of 60. Respiratory rate is 20. The patient is afebrile at 36.3 degrees Celsius. Saturation is 93% on room air. NECK: Supple, full carotid upstrokes. There are no carotid bruits. Jugular venous pressure is flat at 90 degrees. There is no thyromegaly. CARDIOVASCULAR: Reveals a regular rhythm with normal S1 and S2. Heart sounds are distant. No obvious murmurs. LUNGS: Clear without rales, rhonchi or wheezes. ABDOMEN: Benign without bruits. EXTREMITIES: Reveal intact radial artery pulses bilaterally. There is no peripheral edema. DATA: CBC notes hemoglobin of 13.3, hematocrit 38.3, white count 8.0, platelet count 125,000. Electrolytes note a sodium of 142, potassium 4.2, chloride 110, bicarbonate 20, BUN 32, creatinine 1.5, glucose 135. Troponin I level down to 0.063. 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 IMPRESSION AND PLAN: 1. Chest pain syndrome. As before, represents either myocardial ischemia versus a supply-demand mismatch realizing his blood pressure at the time of presentation. Continue conservative medical care. 2. Known coronary artery disease, status post coronary artery bypass graft x3 in 1988 with a redo procedure in 1998. 3. History of chronic stable angina pectoris. 4. Hypertension -- controlled. 5. Hypercholesterolemia -- continue statin. 6. Diabetes mellitus. 7. Seizure disorder -- episode occurred yesterday. Neurology workup in progress. 8. Dementia.
[2016-04-04 10:29] VITALS: BP 169/77; PULSE 65; TEMP 36.7; O2SAT 94
[2016-04-04 11:54] VITALS: BP 97/60; PULSE 68; TEMP 36.4; O2SAT 98
[2016-04-04 14:39] VITALS: BP 97/60; PULSE 68; TEMP 36.4; O2SAT 98
--- NOTE | 2016-04-04 14:50 | Discharge Instructions ---
Discharge Instructions Admission Reason for Admission: Unstable Angina Discharge Discharge Diagnosis / Problem: Unstable angina, Seizure Discharge Goals Goal(s): Improve disease control, Therapeutic intervention Activity Recommendations Activity Level: Assistance Required Therapies: Physical Therapy, Weight Bearing Status (Full, with rolling walker) , Occupational Therapy, Speech Therapy . Additional Information Patient informed of condition: Yes Advance Directives: Yes DNR: Yes Level of Care: Skilled Communicable Disease: No Prognosis: Stable Oxygen at (LPM): N/A Miller Catheter: No Instructions / Follow-Up Instructions / Follow-Up The patient is an 85-year-old male who presents emergency department with complaints of chest pain or shortness of breath for the past 2-3 days. The patient has moderate dementia. His noted he was more short of breath at rest the morning of admission and was complaining of anginal type chest pain she gave him 3 nitroglycerin sublinguals which did not alleviate his symptoms. She given him a single dose of nitroglycerin sublingual the day before which did seem to help. Because of the persistence and worsening symptoms she called emergency services, who gave the patient 324 mg of aspirin in route. EMS also notes that his oxygen saturation was in the upper 80s on room air upon arrival. Serial cardiac markers mildly elevated but stable. Unstable angina with history of coronary artery disease and previous CABG x 2 and stents, Hypertensive Emergency with evidence of end organ damage of elevated troponin--BP was 200 systolic on admission, now improved -continue telemetry-no events so far ECHO showed: * Compared with 11/20/13 study, minor LV wall motion abnormality no longer seen, pulmonary hypertension now seen, otherwise no significant change. * The study was technically limited. * The left ventricle is grossly normal size. * There is mild concentric left ventricular hypertrophy. * Grade I diastolic dysfunction, (abnormal relaxation pattern). * Ejection Fraction = 50-55%. * Left ventricular systolic function is normal. * No regional wall motion abnormalities noted. * Aortic valve sclerosis moderate, without significant aortic valvular stenosis. * Mild aortic regurgitation. * There is mild tricuspid regurgitation. * Right ventricular systolic pressure is elevated at 40-50mmHg. * The inferior vena cava is moderately dilated. -continue aspirin 81 mg by mouth daily , metoprolol succinate 50 mg daily, losartan 5 mg by mouth daily. COnsider increasing Toprol to 100mg as per Cardio if BPs remain elevated -cont Imdur extended release 60 mg by mouth daily -Appreciate Cardiology consult--> conservative management given advanced age and comorbid dementia and other conditions, family in agreement with no invasive testing Cardiology Impression: 1. Chest pain syndrome -- as before, I suspect this is either myocardial ischemia versus a supply demand mismatch, as he is quite hypertensive at time of presentation. Would continue with conservative medical care realizing his dementia, advanced age, and his comorbidities. Could increase metoprolol succinate, if blood pressure dictates. However, did demonstrate some hypotension yesterday. 2. Known coronary artery disease -- status post coronary artery bypass grafting x3 in 1988 with a redo procedure in 1998. 3. History of chronic, stable angina pectoris. 4. Hypertension -- as above. 5. Hypercholesterolemia -- continue simvastatin. 6. Diabetes mellitus. 7. Dementia. Diabetes mellitus type II--held glimeperide 1 mg by mouth daily while in hospital but can restart on discharge, and place on Accu-Cheks before meals and at bedtime with NovoLog coverage. Hypercholesterolemia--continue simvastatin 80 mg by mouth at bedtime. Seizure disorder-had witnessed seizure in house on 04/03 that resolved on own after [address] neg, ECG negative, labs stable. Seen by Neurology and started on Vimpat in addition to Keppra. Had EEG which showed: Interpretation This is an abnormal routine EEG secondary to moderate background disorganization and slowing. There was no focal slowing, electrographic seizures or epileptiform discharges. Clinical Correlation This EEG indicates a moderate encephalopathy of nonspecific etiology. Neuro recommendations: -added on Vimpat 50 mg twice a day for seizure prophylaxis. -continue with low-dose Keppra 250mg bid without change for now - In the future if the patient does well with Vimpat, could consider discontinuation of Keppra and adjusting Vimpat as needed. Discussed common side effects of dizziness or sedation with Vimpat. -Follow-up with Dr. Chang in neurology [facility] as previously scheduled in July. -Instructed the to give us (Neuro) a call in 1 month to let us know how he is doing on new medication to make sure that we do not have to make any adjustments. Also instructed the to give us a call sooner if she is concerned about medication side effects or any episodes concerning for seizures. GERD--continue ranitidine at bedtime. PE history--occurred in the distant past Renal insufficiency--creatinine 1.50 is near his baseline. Hypernatremia, hyperkalemia--> Na+ 148, K 5.4 on day before discharge which improved to 143 and 4.2 after 500 mL bolus of NS and encouraging free water intake -Need to encourage free water intake of four 8 oz glasses water daily given dementia he is not accessing water on his own accord Dementia- agitation--> much improved after day 1 with redirection. Some mild dysphagia--> Speech Tx saw and recommended Slippery Diet Speech change--> sounds like subacute or gradually worsening issue, with reported cough with liquids at home. With dementia, no signs of CVA. -Consult Speech Tx appreciated Mild anemia, thrombocytopenia- B12 and folate levels normal, not overly concerning, no signs of bleeding. Anemia likely of chronic renal disease -follow CBC here and as outpatient periodically Proph- heparin SQ Current Hospital Diet Patient's current hospital diet: Regular Diet, AHA Diet (Heart Healthy), Diabetes Type 2 Diet Discharge Diet Recommended Diet: Regular Diet, AHA Diet (Heart Healthy), Diabetes Type 2 Diet (and Slippery Diet) Procedures Procedures Performed: ECHO EEG CT Head Chest xray Pending Studies Studies pending at discharge: no Physician Orders On Transfer Special Precautions: Seizure and Fall precautions Dressing Changes: N/A IV Therapy: N/A Vital Signs: Routine Weigh: Routine Additional Orders: Follow up with Neurology as scheduled in July Follow up with Cardiology within 1 month Follow up with PCP within 1 week after discharge POLST Discussion: without POLST completion Laboratory Results Hemoglobin A1c Test 03/07/16 09:15 Range/Units Estimated Average Glucose 123 mg/dl Hemoglobin A1c 5.9 H 4.5-5.6 % Lipid Panel Test 03/07/16 09:15 Range/Units Triglycerides Level 61 0-150 mg/dl Cholesterol Level 122 0-200 mg/dl HDL Cholesterol 61 mg/dl Cholesterol/HDL Ratio 2.0 LDL Cholesterol, Calculated 49 mg/dl Medical Emergencies . Who to Call and When: Medical Emergencies: If at any time you feel your situation is an emergency, please call 911 immediately. . Non-Emergent Contact Non-Emergency issues call your: Primary Care Provider Call Non-Emergent contact if: you have a fever, your pain is worsening, you have any medication questions . . "Provider Documentation" section prepared by Jeni Rose. Core Measure Problem Core Measures: None
[2016-04-04] MEDS ORDERED: LACO50TA PO (14:52)
--- NOTE | 2016-04-04 19:14 | Discharge Summary ---
Discharge Summary Admission Date: Mar 31, 2016 at 14:44 Discharge Date: Apr 04, 2016 Discharge Disposition: halfway facility ([facility]) Principal Diagnosis: Unstable Angina Problems/Secondary Diagnoses: Unstable angina Coronary artery disease with h/o CABG Hypertensive emergency HTN Chronic diastolic CHF Mild aortic regurgitation. Mild tricuspid regurgitation. Pulm HTN Hypercholesterolemia Dementia Diabetes mellitus type II Seizure disorder GERD H/o PE CKD Stage III Hypernatremia Hyperkalemia Mild dysphagia Mild anemia Thrombocytopenia Immunizations: Have You Had Influenza Vaccine: Yes Influenza Vaccine Date: Nov 22, 2012 History of Tetanus Vaccine?: UTD Tetanus Immunization Date: Apr 20, 2002 History of Pneumococcal: Yes Pneumococcal Date: Apr 20, 2009 History of Hepatitis B Vaccine: No Procedures: SINGLE VIEW CHEST CLINICAL HISTORY: Dyspnea. FINDINGS: An AP, portable, upright chest radiograph is compared to study dated 02/07/2015 and correlated with chest CT dated 06/16/2011. The examination is degraded by portable technique and patient rotation. The patient is status post midline sternotomy. The heart is enlarged and there is atherosclerotic calcification of the thoracic aorta. The pulmonary vasculature is noncongested. Scattered calcified granulomas are observed. Linear scarring at the left lung base and chronic interstitial thickening are similar to previous. No airspace consolidation, large pleural effusion, or pneumothorax is seen. The skeletal structures are osteopenic. The bony thorax is grossly intact. IMPRESSION: Cardiomegaly with no active disease in the chest. CT HEAD WITHOUT CONTRAST (CT) CLINICAL HISTORY: seizure COMPARISON STUDY: 02/07/2015 TECHNIQUE: Axial CT of the brain is performed from the vertex to the skull base. IV contrast was not administered for this examination. CT DOSE: 537.48 mGy.cm FINDINGS: No intra or extra-axial mass lesions are visualized. There is no CT evidence of acute cortical infarction. There is no evidence of midline shift. There is no acute hemorrhage. No calvarial fractures are visualized. There are patchy white matter hypodensities likely on a small vessel basis. There is no evidence of pathologic ventricular dilatation. There is no evidence of acute sinusitis IMPRESSION: No acute intracranial findings EEG: Description This is a 21 electrode EEG with a single channel dedicated to limited EKG. The electrodes were placed in accordance with the International 10-20 system. At the start of this recording the patient was and reported altered mental status. Background was poorly organized with no anterior to posterior gradient. Background was composed of predominantly 5-6 Hz theta frequencies with intermixed alpha frequencies and intermittent delta slowing. Hyperventilation was not done. Photic stimulation at various frequencies produced no abnormalities. There was no state changes or sleep transients. Interpretation This is an abnormal routine EEG secondary to moderate background disorganization and slowing. There was no focal slowing, electrographic seizures or epileptiform discharges. Clinical Correlation This EEG indicates a moderate encephalopathy of nonspecific etiology. ECHO: * Compared with 11/20/13 study, minor LV wall motion abnormality no longer seen, pulmonary hypertension now seen, otherwise no significant change. * The study was technically limited. * The left ventricle is grossly normal size. * There is mild concentric left ventricular hypertrophy. * Grade I diastolic dysfunction, (abnormal relaxation pattern). * Ejection Fraction = 50-55%. * Left ventricular systolic function is normal. * No regional wall motion abnormalities noted. * Aortic valve sclerosis moderate, without significant aortic valvular stenosis. * Mild aortic regurgitation. * There is mild tricuspid regurgitation. * Right ventricular systolic pressure is elevated at 40-50mmHg. * The inferior vena cava is moderately dilated. Consultations: Neurology Cardiology Medication Reconciliation New Medications: Insulin Aspart (Novolog Flexpen) 100 Units/Ml Inj 0 UNITS SC ACHS for 30 Days Lacosamide (Vimpat) 50 Mg Tab 50 MG PO BID for 30 Days, #60 TAB Changed Medications: Metoprolol Succ (Toprol Xl) (Toprol-Xl) 50 Mg Tabcr 1 TAB PO HS for 30 Days, TAB 5 Refills (Changed from: DAILY; Removed Quantity) Olmesartan Medoxomil (Olmesartan Medoxomil) 5 Mg Tab 5 MG PO HS for 30 Days (Changed from: DAILY; Removed Quantity) Continued Medications: Aspirin (Ecotrin Low Strength) 81 Mg Tab 81 MG PO HS Fish Oil (Flovilla-3) 1 Ea Cap 1 TAB PO DAILY Glimepiride (Glimepiride) 1 Mg Tab 1 MG PO DAILY, #90 Isosorbide Mononitrate (Imdur Ext Rel) 60 Mg Tab 60 MG PO DAILY, TAB Levetiractam (Keppra) 250 Mg Tab 250 MG PO BID for 30 Days, #60 TAB Multivitamin (Multivitamin) Tab 1 TABLET PO DAILY Nitroglycerin (Nitrostat) 0.4 Mg Tab 0.4 MG UT PRN, BTL ONE TABLET UNDER TONGUE EVERY FIVE MINUTES, UP TO 3 DOSES, NEEDED FOR CHEST PAIN. Ranitidine Hcl (Zantac) 300 Mg Tab 300 MG PO HS, TAB Simvastatin (Zocor) 80 Mg Tab 80 MG PO HS Referrals At Discharge Follow up Referrals: Telegrapher Agent Referral - Within a Month with Huan Heath M.D. Physician Referral - Within 2 Weeks with Jose Mae M.D. Discharge Exam Doing very well on day of discharge. No more seizure activity, mentating well, no chest pain, no SOB. Review of Systems: Constitutional: No fever Eyes: No problem reported ENT: No problem reported Respiratory: No dyspnea on exertion, No shortness of breath Cardiovascular: No chest pain Abdomen: No constipation, No diarrhea, No nausea, No pain, No vomiting Musculoskeletal: No problem reported Genitourinary - Male: No problem reported Neurologic: + memory loss Psychiatric: No problem reported Hematologic / Lymphatic: No problem reported Integumentary: No problem reported Physical Exam: General Appearance: WD/WN, no apparent distress Eyes: normal inspection, sclerae normal ENT: hearing grossly normal, pharynx normal Neck: no JVD, trachea midline Respiratory/Chest: lungs clear, normal breath sounds, no respiratory distress, no accessory muscle use Cardiovascular: regular rate, rhythm, no edema, no gallop, no murmur, normal peripheral pulses Abdomen / GI: normal bowel sounds, non tender, soft, no organomegaly, no pulsatile mass Extremities: normal inspection, no calf tenderness, no pedal edema, normal range of motion Neurologic/Psychiatric: alert, normal mood/affect, + pertinent finding ( oriented x 2) Skin: normal color, warm/dry, no rash Hospital Course The patient is an 85-year-old male who presents emergency department with complaints of chest pain or shortness of breath for the past 2-3 days. The patient has moderate dementia. His noted he was more short of breath at rest the morning of admission and was complaining of anginal type chest pain she gave him 3 nitroglycerin sublinguals which did not alleviate his symptoms. She given him a single dose of nitroglycerin sublingual the day before which did seem to help. Because of the persistence and worsening symptoms she called emergency services, who gave the patient 324 mg of aspirin in route. EMS also notes that his oxygen saturation was in the upper 80s on room air upon arrival. Serial cardiac markers mildly elevated but stable. Unstable angina with history of coronary artery disease and previous CABG x 2 and stents, Hypertensive Emergency with evidence of end organ damage of elevated troponin--BP was 200 systolic on admission, now improved -continue telemetry-no events so far ECHO showed: * Compared with 11/20/13 study, minor LV wall motion abnormality no longer seen, pulmonary hypertension now seen, otherwise no significant change. * The study was technically limited. * The left ventricle is grossly normal size. * There is mild concentric left ventricular hypertrophy. * Grade I diastolic dysfunction, (abnormal relaxation pattern). * Ejection Fraction = 50-55%. * Left ventricular systolic function is normal. * No regional wall motion abnormalities noted. * Aortic valve sclerosis moderate, without significant aortic valvular stenosis. * Mild aortic regurgitation. * There is mild tricuspid regurgitation. * Right ventricular systolic pressure is elevated at 40-50mmHg. * The inferior vena cava is moderately dilated. -continue aspirin 81 mg by mouth daily , metoprolol succinate 50 mg daily, losartan 5 mg by mouth daily. COnsider increasing Toprol to 100mg as per Cardio if BPs remain elevated -cont Imdur extended release 60 mg by mouth daily -Appreciate Cardiology consult--> conservative management given advanced age and comorbid dementia and other conditions, family in agreement with no invasive testing Cardiology Impression: 1. Chest pain syndrome -- as before, I suspect this is either myocardial ischemia versus a supply demand mismatch, as he is quite hypertensive at time of presentation. Would continue with conservative medical care realizing his dementia, advanced age, and his comorbidities. Could increase metoprolol succinate, if blood pressure dictates. However, did demonstrate some hypotension yesterday. 2. Known coronary artery disease -- status post coronary artery bypass grafting x3 in 1988 with a redo procedure in 1998. 3. History of chronic, stable angina pectoris. 4. Hypertension -- as above. 5. Hypercholesterolemia -- continue simvastatin. 6. Diabetes mellitus. 7. Dementia. Diabetes mellitus type II--held glimeperide 1 mg by mouth daily while in hospital but can restart on discharge, and place on Accu-Cheks before meals and at bedtime with NovoLog coverage. Hypercholesterolemia--continue simvastatin 80 mg by mouth at bedtime. Seizure disorder-had witnessed seizure in house on 04/03 that resolved on own after [address] neg, ECG negative, labs stable. Seen by Neurology and started on Vimpat in addition to Keppra. Had EEG which showed: Interpretation This is an abnormal routine EEG secondary to moderate background disorganization and slowing. There was no focal slowing, electrographic seizures or epileptiform discharges. Clinical Correlation This EEG indicates a moderate encephalopathy of nonspecific etiology. Neuro recommendations: -added on Vimpat 50 mg twice a day for seizure prophylaxis. -continue with low-dose Keppra 250mg bid without change for now - In the future if the patient does well with Vimpat, could consider discontinuation of Keppra and adjusting Vimpat as needed. Discussed common side effects of dizziness or sedation with Vimpat. -Follow-up with Dr. Chang in neurology [facility] as previously scheduled in July. -Instructed the to give us (Neuro) a call in 1 month to let us know how he is doing on new medication to make sure that we do not have to make any adjustments. Also instructed the to give us a call sooner if she is concerned about medication side effects or any episodes concerning for seizures. GERD--continue ranitidine at bedtime. PE history--occurred in the distant past Renal insufficiency--creatinine 1.50 is near his baseline. Hypernatremia, hyperkalemia--> Na+ 148, K 5.4 on day before discharge which improved to 143 and 4.2 after 500 mL bolus of NS and encouraging free water intake -Need to encourage free water intake of four 8 oz glasses water daily given dementia he is not accessing water on his own accord Dementia- agitation--> much improved after day 1 with redirection. Some mild dysphagia--> Speech Tx saw and recommended Slippery Diet Speech change--> sounds like subacute or gradually worsening issue, with reported cough with liquids at home. With dementia, no signs of CVA. -Consult Speech Tx appreciated Mild anemia, thrombocytopenia- B12 and folate levels normal, not overly concerning, no signs of bleeding. Anemia likely of chronic renal disease -follow CBC here and as outpatient periodically Proph- heparin SQ Dispo-to [facility] DNR/DNI Total Time Spent: Greater than 30 minutes This includes examination of the patient, discharge planning, medication reconciliation, and communication with other providers. Discharge Instructions Please refer to the electronic Patient Visit Report (Discharge Instructions) for additional information. Follow-Up With Neuro in July 2016 or sooner prn With Cardiology within 1 month With PCP within 1 week Additional Copies To Huan Heath M.D.; Jose Mae M.D.; Jorge L Chang M.D.
--- NOTE | 2016-04-09 12:23 | EDITING REQUIRED CODING QUERY ---
CODING QUERY Dear Dr. Rose, To promote full compliance with coding requirements relating to patient care, provider participation is requested in all cases of manager motor uncertainty. Please assist us with the question(s) below: In responding to this query, please exercise your independent professional judgement. The fact that a question is asked does not imply that any particular answer is desired or expected. We appreciate your clarification on this issue. Please clarify below: Myocardial ischemia versus a supply demand mismatch Coding Question(s): Please rey all that apply with an (x) below. ( ) Myocardial ischemia (acute, with myocardial infarction) ( ) Myocardial ischemia (acute, without myocardial infarction) ( ) NSTEMI ( ) STEMI ( ) Myocardial ischemia was ruled out ( ) NSTEMI was ruled out ( ) STEMI was ruled out ( x ) Demand Ischemia ( ) Demand Ischemia was ruled out ( ) Other: Please explain Medical documentation: Cardiology Impression: 1. Chest pain syndrome -- as before, I suspect this is either myocardial ischemia versus a supply demand mismatch, as he is quite hypertensive at time of presentation. Would continue with conservative medical care realizing his dementia, advanced age, and his comorbidities. Could increase metoprolol succinate, if blood pressure dictates. However, did demonstrate some hypotension yesterday. ER impression Primary Impression: NSTEMI (non-ST elevated myocardial infarction) IMPRESSION: Mr. Rosa was admitted with an apparent chest pain syndrome. As above, history is unobtainable from the patient. In any event, his troponin is mildly elevated, but his CKs are normal. He was significantly hypertensive at the time of his evaluation in the Emergency Room. Not certain if his elevated cardiac enzymes represent myocardial ischemia or a supply demand mismatch. Physician's Response(s): Thank you for your time. Ira Levine [facility] Principal Diagnosis: "_that condition established after study, to be chiefly responsible for occasioning the admission of the patient to the hospital for care." Co-Existing Principal Diagnosis: "_when two or more diagnoses equally meet the criteria for principal diagnosis as determined by the circumstances of admission, diagnostic work up, and/or therapy provided, and the Alphabetic Index, Tabular List, or another coding guideline does not provide sequencing direction, any one of the diagnoses may be sequenced first." "When the physician has documented what appears to be a current diagnosis in the body of the record, but has not included the diagnosis in the final diagnostic statement, the physician should be asked whether the diagnosis should be added." (Source Coding [facility] 2 QTR90. p3-4)
== END 2016-04-04 15:55 | DRG 302 ==
LOC: ENRESERVTM → ENRESERVDT → EDBD 09:48 → C.EDB 09:49 → C.2T 14:44
PROVIDERS: ADMIT Hospitalist; ATTEND Family Medicine
DX: I25.110 Atherosclerotic heart disease of native coronary artery with unstable angina pectoris (principal); G93.40 Encephalopathy, unspecified; I50.32 Chronic diastolic (congestive) heart failure; E87.0 Hyperosmolality and hypernatremia; I16.1 Hypertensive emergency; I13.0 Hypertensive heart and chronic kidney disease with heart failure and stage 1 through stage 4 chronic kidney disease, or unspecified chronic kidney disease; N18.3 Chronic kidney disease, stage 3 (moderate); E78.00 Pure hypercholesterolemia, unspecified; R13.10 Dysphagia, unspecified; N28.9 Disorder of kidney and ureter, unspecified; K21.9 Gastro-esophageal reflux disease without esophagitis; D69.6 Thrombocytopenia, unspecified; F03.90 Unspecified dementia, unspecified severity, without behavioral disturbance, psychotic disturbance, mood disturbance, and anxiety; E87.5 Hyperkalemia; G40.909 Epilepsy, unspecified, not intractable, without status epilepticus; I27.2 Other secondary pulmonary hypertension; I08.3 Combined rheumatic disorders of mitral, aortic and tricuspid valves; I95.9 Hypotension, unspecified; E11.22 Type 2 diabetes mellitus with diabetic chronic kidney disease; R79.89 Other specified abnormal findings of blood chemistry; R07.89 Other chest pain; E78.5 Hyperlipidemia, unspecified; E11.42 Type 2 diabetes mellitus with diabetic polyneuropathy; D63.1 Anemia in chronic kidney disease; Z66 Do not resuscitate; R45.1 Restlessness and agitation; Z86.73 Personal history of transient ischemic attack (TIA), and cerebral infarction without residual deficits; Z82.49 Family history of ischemic heart disease and other diseases of the circulatory system; Z95.1 Presence of aortocoronary bypass graft; Z95.5 Presence of coronary angioplasty implant and graft; Z86.711 Personal history of pulmonary embolism; Z85.72 Personal history of non-Hodgkin lymphomas; Z79.82 Long term (current) use of aspirin; Z79.899 Other long term (current) drug therapy; Z79.84 Long term (current) use of oral hypoglycemic drugs